=== PATIENT | female | born 1990 | race Caucasian/White ===

== ENCOUNTER → 2016-04-02 | Outpatient (CLI) | payer OTHER ==
[~2016-04-02] MED LIST: BCPILLS PO; IBUP-1449 PO; OXYC-57 PO; RIZA10TA18 PO; TRAM-10 PO
[2016-04-05 00:51] LABS: CHLAMYDIA TRACH RNA*** NOT DETECTED (NOT DETECTED); GC (NEIS GONORRHOEAE)RNA** NOT DETECTED (NOT DETECTED)
== END | disposition home or self-care (01) ==
LOC: C.LAB1850 10:15
PROVIDERS: ATTEND Obstetrics & Gynecology
DX: Z11.3 Encounter for screening for infections with a predominantly sexual mode of transmission (principal)

== ENCOUNTER 2016-06-11 15:00 | Emergency (ER) | payer OTHER ==
[~2016-06-11] VITALS: Ht 170.2 cm; Wt 59.0 kg
[~2016-06-11 15:00] MED LIST changes: -OXYC-57 PO; -TRAM-10 PO
[2016-06-11 15:08] VITALS: TEMP 37.1; Ht 170.2 cm; Wt 59.0 kg
[2016-06-11] MEDS ORDERED: TRAM-10 PO (15:39)
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
[2016-06-11] MEDS ORDERED: DIPHTHERIA/TETANUS/PERTUSSIS 0.5 ML SYR/VIAL IM. ONE (16:15)
[2016-06-11 16:30] VITALS: BP 135/77; PULSE 89; O2SAT 99
[2016-12-15] MEDS ORDERED: OXYC-57 PO (08:09)
== END 2016-06-11 16:31 | disposition admitted as inpatient to this hospital (09) ==
LOC: C.EDB 15:02 → C.EDD 16:31
DX: T23.291A Burn of second degree of multiple sites of right wrist and hand, initial encounter (principal); X11.8XXA Contact with other hot tap-water, initial encounter; F41.9 Anxiety disorder, unspecified; J45.909 Unspecified asthma, uncomplicated; F32.9 Major depressive disorder, single episode, unspecified; G43.909 Migraine, unspecified, not intractable, without status migrainosus; G95.0 Syringomyelia and syringobulbia; Z79.3 Long term (current) use of hormonal contraceptives

== ENCOUNTER → 2016-08-01 | Outpatient (CLI) | payer OTHER ==
[~2016-08-01] MED LIST changes: +OXYC-57 PO; +PRED20TA2 PO; +TRAM-10 PO
[2016-08-04 16:17] LABS: HERPES SIMPLEX AB IGG-1 >58.00 INDEX (< 0.90); HERPES SIMPLEX AB IGG-2 < 0.90 INDEX (< 0.90)
== END | disposition home or self-care (01) ==
LOC: C.LAB1850 10:45
PROVIDERS: ATTEND Obstetrics & Gynecology
DX: Z12.4 Encounter for screening for malignant neoplasm of cervix (principal); Z11.3 Encounter for screening for infections with a predominantly sexual mode of transmission

== ENCOUNTER → 2016-08-01 | Outpatient (CLI) | payer OTHER | LOC: C.PAPS 14:36 | PROVIDERS: ATTEND Obstetrics & Gynecology | DX: Z12.4 Encounter for screening for malignant neoplasm of cervix (principal) ==

== ENCOUNTER → 2016-12-08 | Outpatient (CLI) | payer OTHER ==
[~2016-12-08] MED LIST changes: -PRED20TA2 PO
[2016-12-08 12:51] LABS: BASO % 0.5 %; BASO ABS # 0.04 K/uL (0-0.2); COMPLETE YES; EOS % 2.2 %; HEMATOCRIT 39.1 % (37-47); IG% 0.1 %; LYMPH % 33.2 %; LYMPH ABS # 2.55 K/uL (1.2-3.4); MEAN CELL VOLUME 88.7 fL (80-100); MEAN CORPUSCULAR HEMOGLOBIN 30.4 pg (25-34); MEAN CORPUSCULAR HGB CONC 34.3 g/dl (32-36); MEAN PLATELET VOLUME 10.6 fL (7.4-10.4); MONO % 5.6 %; NEUT % 58.4 %; PLATELET COUNT 165 K/uL (130-400); RED BLOOD COUNT 4.41 M/uL (4.2-5.4); WHITE BLOOD COUNT 7.67 K/uL (4.8-10.8)
== END | disposition home or self-care (01) ==
LOC: C.LAB 12:07
PROVIDERS: ATTEND Obstetrics & Gynecology
DX: Z01.812 Encounter for preprocedural laboratory examination (principal)

== ENCOUNTER → 2016-12-15 | Day surgery (SDC) | payer OTHER ==
[2016-11-18 11:05] VITALS: Ht 170.2 cm; Wt 59.1 kg
[~2016-12-15] VITALS: Ht 170.2 cm; Wt 59.1 kg
[~2016-12-15] MED LIST changes: +ATROPINE SULFATE 0.1 MG/ML 5ML SYR IV PRN; +BUPIVACAINE 0.25% 30 ML VIAL ONE; +DEXAMETHASONE SOD INJ 4 MG/ML VIAL ONE; +EpHEDrine SULFATE INJ 50 MG/ML AMP IV PRN; +EpHEDrine SULFATE INJ 50 MG/ML AMP ONE; +FENTANYL CITRATE INJ 50 MCG/1 ML 2 ML VIAL ONE; +GLYCOPYRROLATE INJ 0.2 MG/ML VIAL ONE; +HYDROmorphone INJ 1 MG/ML SYR IV PRN; +LACTATED RINGER'S 1000ML 1,000 ML IV SCH; +LIDOCAINE HCL 2% 2 ML VIAL (20MG/ML) ONE; +MIDAZOLAM HCL 1 MG/ML 2ML VIAL ONE; +MoRPHine SULFATE 2 MG/ML CARP IV PRN; +MoRPHine SULFATE 4 MG/ML 1 ML CARP\\VIAL IV PRN; +NEOSTIGMINE METHYLSULFATE 5 MG/5 ML SYR ONE; +ONDANSETRON INJ 2 MG/ML 2 ML VIAL IV PRN; +ONDANSETRON INJ 2 MG/ML 2 ML VIAL ONE; +OXYCODONE/ACETAMINOPHEN 5-325 TAB PO PRN; +PHENYLEPHRINE HCL INJ 10 MG/ML VIAL ONE; +PROMETHAZINE HCL INJ 12.5 MG in SODIUM CHLORIDE 0.9% 50ML 50 ML IV PRN; +PROMETHAZINE HCL INJ 25 MG in SODIUM CHLORIDE 0.9% 50ML 50 ML IV PRN; +PROPOFOL IV EMULSION 10 MG/ML 20 ML VIAL IV ONE; +ROCURONIUM BROMIDE 10 MG/ML 5 ML VIAL IV ONE; +SODIUM CHLORIDE 0.9% 1000ML 1,000 ML IV SCH; +SUCCINYLCHOLINE CHLORIDE 20 MG/ML 10 ML VIAL IV ONE
--- NOTE | 2016-12-15 07:01 | History & Physical Bridge - SC ---
H&P Re-Evaluation Bridge Note: I have examined the patient, reviewed the History & Physical and in the interval since the performance of the History & Physical I have noted the following changes of clinical significance: No changes noted
--- NOTE | 2016-12-15 08:08 | [facility] Post Operative Brief Note ---
Immediate Operative Summary Operative Date Dec 15, 2016. Pre-Operative Diagnosis Desires Sterilization Post-Operative Diagnosis same Procedure(s) Performed Laparoscopic Tubal Sterilization Surgeon Dr. Mateusz Roque Product Craftsman Surgeon(s) Sanjiv Cm MD Estimated Blood Loss 5CC Findings Normal appearing uterus, tubes, ovaries. Specimens none Drains shaver, clear yellow Anesthesia general Complication(s) None Disposition Recovery Room / PACU
--- NOTE | 2016-12-15 08:10 | Discharge Instructions-SurgCtr ---
Discharge Instructions Date of Service Dec 15, 2016. Visit Reason for Visit: Encounter For Female Sterilization Discharge Discharge Diagnosis / Problem: s/p laparoscopic tubal sterilization Discharge Goals Goal(s): Therapeutic intervention Activity Recommendations Activity Limitations: per Instructions/Follow-up section Anesthesia . Post Anesthesia Instructions: If you have had General Anesthesia or IV Sedation: * Do not drive today. * Resume driving when surgeon permits. * Do not make important decisions or sign legal documents today. * Call surgeon for: 1. Temperature elevations greater than 101 degrees F. 2. Uncontrollable pain. 3. Excessive bleeding. 4. Persistent nausea and vomiting. 5. Medication intolerance (nausea, vomiting or rash). * For nausea and vomiting use only clear liquids such as: tea, soda, bouillon until nausea subsides, then gradually increase diet as tolerated. * If you have any concerns or questions, call your surgeon's office. If physician is unavailable and it is an emergency, call 911 or go to the nearest emergency room. . Instructions / Follow-Up Instructions / Follow-Up ACTIVITY RECOMMENDATIONS: * Rest the first 2-3 days. You should be back to your normal activity levels by day 3. * No heavy lifting for 2 weeks. * No intercourse, tampons or douching for 1-2 weeks. * You may shower the next day. * Do not drive anytime that you are taking narcotic pain medicines. RETURN TO SCHOOL/WORK: * May return to school or work after 2-3 days. DIET: Nausea may occur in the immediate post-operative period. If so, take clear liquids such as tea, bouillon, apple juice until all nausea has subsided, then resume usual diet. MEDICATIONS: Resume previous medications unless instructed otherwise by your surgeon. Ibuprofen 200mg 2-3 tablets every 4-6 hours as needed -- OR -- Aleve 2 tablets every 8-12 hours as needed for post-operative discomfort Medications are over the counter. Tylenol may be used if above medications are contraindicated or not preferred. Medication should be taken with food or milk. Do not take on an empty stomach. SPECIAL CARE INSTRUCTIONS: * Check temperature twice daily for one week. report any elevation over 101 degrees. * You may experience some vagina spotting and/or bleeding. This is normal for 1 -2 weeks and should not be heavier than a normal period. If it is unusual in amount, call your physician. * Post-operative discomfort may consist of a sore throat, a "bloated" feeling and pain in the shoulders. these are normal symptoms, which usually only last for 2-3 days. * Remove band-aids tomorrow and shower. There is no need to replace band-aids unless there is drainage or discomfort. FOLLOW UP VISIT: Call your doctor's office for a post-operative 2 week visit if not already scheduled. Diet Recommendations Home Diet: resume previous diet Procedures Procedures Performed: Laparoscopic Tubal Sterilization Pending Studies Studies pending at discharge: no Medical Emergencies . Who to Call and When: Medical Emergencies: If at any time you feel your situation is an emergency, please call 911 immediately. . Non-Emergent Contact Non-Emergency issues call your: Primary Care Provider, Automotive Service Professional . . "Provider Documentation" section prepared by Ade Roque. .
[2016-12-15] MEDS: FENTANYL CITRATE INJ 50 MCG/1 ML 2 ML VIAL IV PRN ×2 (08:36→08:42)
[2016-12-15 08:52] VITALS: TEMP 36.9
--- NOTE | 2016-12-15 09:38 | OPERATIVE REPORT ---
DATE OF OPERATION: 12/15/2016 PREOPERATIVE DIAGNOSIS: Desires sterilization. POSTOPERATIVE DIAGNOSIS: Same. PROCEDURE PERFORMED: Laparoscopic tubal sterilization. SURGEON: Ade Roque DO. CRUISE GUIDE: Dr. Cm. ESTIMATED BLOOD LOSS: 5 mL FINDINGS: Normal appearing uterus, tubes and ovaries. SPECIMENS: None. DRAINS: Aldana, clear yellow. ANESTHESIA: General. COMPLICATIONS: None. DISPOSITION: Stable and good to recovery room. INDICATIONS FOR PROCEDURE: The patient is a 26-year-old G0 who originally presented to my office requesting tubal sterilization. We had a thorough discussion about this and I presented to her with all options, especially long-acting but reversible contraceptives. The patient was confident and insistent that she wanted to undergo surgical sterilization. I then brought her back to the office for another discussion about this to give her time to think and she again requests sterilization and brought with her a handwritten letter outlining her decision. She was counseled on the risk of failure of 2-05/999 and she elected to proceed with surgery. Informed consent was obtained in the office. DESCRIPTION OF PROCEDURE: The patient was taken to the operating room where general anesthesia was administered. She was prepared and draped in the usual sterile fashion with feet in [facility] stirrups. A Aldana catheter was placed. A weighted speculum was placed in the vagina, the cervix was visualized and its anterior lip was grasped with a single tooth tenaculum. Felsenthal uterine manipulator was placed and gloves were changed and attention was then turned to the abdomen. An infraumbilical skin incision was made and this was carried through using the open Jesus technique through the fascia and into the peritoneum. The infraumbilical trocar was placed and camera was inserted to ensure placement into the peritoneal space. CO2 gas was used to insufflate the abdomen to a pressure of 15 mmHg. The pelvis was viewed with the above-noted findings. The suprapubic port was then placed under direct visualization. Using the Filshie clip applicator, the right followed by the left tube were identified and followed out to the fimbria and clipped. Excellent hemostasis was observed and all ports were removed under direct visualization and the gas was desufflated from the abdomen. Fascia was reapproximated with 0 Vicryl and the skin was reapproximated with 4-0 Vicryl in a running subcuticular stitch. Marcaine 0.25% was injected at both sites. The patient tolerated the procedure well. She was taken to the recovery room in stable and good condition. I attest to the content of the Intraoperative Record and any orders documented therein. Any exception s are noted below.
[2016-12-15 09:53] VITALS: BP 94/55; PULSE 58; O2SAT 100
--- NOTE | 2016-12-15 10:00 | Anesthesia Progress Nt - [facility] ---
Anesthesia Post Op Note Date & Time Dec 15, 2016 at 09:59 Vital Signs Pain Intensity: 6 Vital Signs Past 12 Hours Date Time Temp Pulse Resp B/P (MAP) Pulse Ox O2 Delivery O2 Flow Rate FiO2 12/15/16 09:53 58 20 94/55 (68) 100 Room Air 12/15/16 09:05 54 20 89/53 (65) 100 Room Air 12/15/16 08:56 103/58 12/15/16 08:52 54 12 12/15/16 08:52 36.9 54 16 104/68 97 Room Air 12/15/16 08:52 54 12 98 12/15/16 08:50 104/68 12/15/16 08:47 56 15 100 12/15/16 08:47 56 15 12/15/16 08:46 48 17 100 12/15/16 08:46 48 17 12/15/16 08:45 106/60 12/15/16 08:41 46 15 12/15/16 08:41 47 15 100 12/15/16 08:40 99/69 12/15/16 08:36 53 12 12/15/16 08:36 53 12 100 12/15/16 08:35 96/61 12/15/16 08:33 42 17 100 12/15/16 08:33 42 17 12/15/16 08:31 101/56 12/15/16 08:28 56 17 12/15/16 08:28 57 17 12/15/16 08:25 99/65 12/15/16 08:24 98/65 12/15/16 08:23 51 14 12/15/16 08:23 52 14 100 12/15/16 08:18 60 10 12/15/16 08:18 10 12/15/16 08:15 103/66 12/15/16 08:13 65 9 103/70 100 12/15/16 08:13 36.4 67 12 103/70 100 Diffusion Mask 6 12/15/16 08:13 67 9 12/15/16 06:32 37.1 85 22 121/83 (96) 100 Room Air Notes Mental Status: alert / awake / arousable, participated in evaluation Pt Amnestic to Procedure: Yes Nausea / Vomiting: adequately controlled Pain: adequately controlled Airway Patency, RR, SpO2: stable & adequate BP & HR: stable & adequate Hydration State: stable & adequate Anesthetic Complications: no major complications apparent Doing well. Awake, n/v controlled. Ready for d/c
== END | disposition home or self-care (01) ==
LOC: X.SURG 06:16
PROVIDERS: ATTEND Obstetrics & Gynecology
DX: Z30.2 Encounter for sterilization (principal); J45.909 Unspecified asthma, uncomplicated; M19.90 Unspecified osteoarthritis, unspecified site; Z82.5 Family history of asthma and other chronic lower respiratory diseases; Z82.49 Family history of ischemic heart disease and other diseases of the circulatory system; Z68.20 Body mass index [BMI] 20.0-20.9, adult; Z98.890 Other specified postprocedural states

== ENCOUNTER 2017-02-18 11:15 | Emergency (ER) | payer OTHER ==
[~2017-02-18] VITALS: Ht 167.6 cm; Wt 58.5 kg
[~2017-02-18 11:15] MED LIST changes: -ATROPINE SULFATE 0.1 MG/ML 5ML SYR IV PRN; -BCPILLS PO; -BUPIVACAINE 0.25% 30 ML VIAL ONE; -DEXAMETHASONE SOD INJ 4 MG/ML VIAL ONE; -EpHEDrine SULFATE INJ 50 MG/ML AMP IV PRN; -EpHEDrine SULFATE INJ 50 MG/ML AMP ONE; -FENTANYL CITRATE INJ 50 MCG/1 ML 2 ML VIAL ONE; -GLYCOPYRROLATE INJ 0.2 MG/ML VIAL ONE; -HYDROmorphone INJ 1 MG/ML SYR IV PRN; -LACTATED RINGER'S 1000ML 1,000 ML IV SCH; -LIDOCAINE HCL 2% 2 ML VIAL (20MG/ML) ONE; -MIDAZOLAM HCL 1 MG/ML 2ML VIAL ONE; -MoRPHine SULFATE 2 MG/ML CARP IV PRN; -MoRPHine SULFATE 4 MG/ML 1 ML CARP\\VIAL IV PRN; -NEOSTIGMINE METHYLSULFATE 5 MG/5 ML SYR ONE; -ONDANSETRON INJ 2 MG/ML 2 ML VIAL IV PRN; -ONDANSETRON INJ 2 MG/ML 2 ML VIAL ONE; -OXYC-57 PO; -OXYCODONE/ACETAMINOPHEN 5-325 TAB PO PRN; -PHENYLEPHRINE HCL INJ 10 MG/ML VIAL ONE; -PROMETHAZINE HCL INJ 12.5 MG in SODIUM CHLORIDE 0.9% 50ML 50 ML IV PRN; -PROMETHAZINE HCL INJ 25 MG in SODIUM CHLORIDE 0.9% 50ML 50 ML IV PRN; -PROPOFOL IV EMULSION 10 MG/ML 20 ML VIAL IV ONE; -ROCURONIUM BROMIDE 10 MG/ML 5 ML VIAL IV ONE; -SODIUM CHLORIDE 0.9% 1000ML 1,000 ML IV SCH; -SUCCINYLCHOLINE CHLORIDE 20 MG/ML 10 ML VIAL IV ONE
[2017-02-18 11:22] VITALS: TEMP 37.3; Ht 167.6 cm; Wt 58.5 kg
[2017-02-18] MEDS ORDERED: SODIUM CHLORIDE 0.9% 1000ML 1,000 ML IV ONE (11:45)
[2017-02-18] MEDS ORDERED: DEXAMETHASONE INJ 10 MG in SYRINGE 0 ML IV ONE ×2 (11:45→12:30)
[2017-02-18] MEDS ORDERED: OPTIRAY 320 IV PRN (12:00)
[2017-02-18 12:10] LABS: BASO % 0.6 %; BASO ABS # 0.05 K/uL (0-0.2); COMPLETE YES; EOS % 5.9 %; HEMATOCRIT 40.4 % (37-47); IG% 0.1 %; LYMPH % 27.4 %; MEAN CELL VOLUME 89.2 fL (80-100); MEAN CORPUSCULAR HEMOGLOBIN 30.9 pg (25-34); MEAN CORPUSCULAR HGB CONC 34.7 g/dl (32-36); MONO % 5.9 %; NEUT % 60.1 %; PLATELET COUNT 148 K/uL (130-400); RED BLOOD COUNT 4.53 M/uL (4.2-5.4); WHITE BLOOD COUNT 8.03 K/uL (4.8-10.8)
[2017-02-18 12:19] LABS: URINE APPEARANCE CLEAR (CLEAR); URINE BILIRUBIN NEG (NEG); URINE COLOR YELLOW; URINE NITRITE NEG (NEG); URINE SPECIFIC GRAVITY 1.013 (1.000-1.030); UROBILINOGEN NEG (NEG)
[2017-02-18 12:20] LABS: MANUAL MICROSCOPIC REQUIRED? NO; REVIEW REQ? NO
[2017-02-18 12:29] LABS: BUN/CREATININE RATIO 12.5 (10-20); CALCIUM 9.1 mg/dl (8.5-10.1); CREATININE 0.85 mg/dl (0.60-1.20); POTASSIUM 3.8 mmol/L (3.5-5.1)
[2017-02-18 12:39] LABS: THYROID STIMULATING HORMONE 1.25 uIu/ml (0.300-4.500)
--- NOTE | 2017-02-18 13:21 | DIAGNOSTIC IMAGING REPORT ---
SOFT TISSUE NECK WITH HISTORY: 26 years-old Female sensations of thoart swelling acute sore throat with tachycardia. COMPARISON: MR cervical spine 08/10/2013 TECHNIQUE: Multiple axial CT images of the cervical spine were obtained following the intravenous administration of 93 mL Optiray 320. A dose lowering technique was used consistent with the principals of ARABELLA. FINDINGS: The nasopharynx, oral pharynx and hypopharynx are patent. Evaluation of the oral cavity is limited secondary to dental amalgam streak artifact. Union and adenoid tonsils are within normal limits. No peritonsillar abscess. There is mild prominence of the lingual tonsils. Trace debris within the vallecula. Piriform sinuses appear unremarkable. The glottis and subglottic airway appear patent. Thyroid is homogeneous. The parotid and sublingual glands appear normal. There is no pathologic adenopathy of the neck identified. No focal soft tissue abnormality or abnormal enhancement identified. The intracranial structures appear unremarkable. Carotid vasculature is within normal limits. Mild residual thymic tissue. Lung apices are clear. Bones appear intact without significant degenerative changes. Mastoid air cells are clear. Minimal mucosal thickening of the maxillary sinuses. Periapical cysts are noted involving the right maxillary second molar as seen on image 137 series 3. IMPRESSION: 1. No acute abnormality identified involving the soft tissues of the neck. No prevertebral soft tissue swelling, peritonsillar abscess or adenopathy. 2. Mild maxillary sinus disease. 3. Periapical cysts involve the right maxillary second molar. The above report was generated using voice recognition software. It may contain grammatical, syntax or spelling errors. Electronically signed by: Andrew Vang M.D. 02/18/2017 1:20 PM Dictated Date/Time: 02/18/2017 1:12 PM
[2017-02-18] MEDS ORDERED: PRED20TA2 PO (14:25)
[2017-02-18 14:40] VITALS: BP 111/66; PULSE 84; O2SAT 98
--- NOTE | 2017-02-18 20:21 | EMERGENCY ROOM VISIT NOTE ---
ED Visit Note First contact with patient: 11:25 Chief Complaint: Allergic reaction. History of Present Illness: Ms. Orellana is a 26-year-old white female who ambulates into the ED complaining of a possible allergic reaction. Patient reports for the last 3 weeks she has been having sensations of throat swelling. In the last week she reports she has been developing an itchy throat and a cough. The cough is been mildly productive of clear sputum. Over the last few days she reports she has developed a whispered voice. She has not identified any aggravating or alleviating factors related to her symptoms. She did report she using her albuterol inhaler and took Benadryl last night; when questioned patient reports she is allergic to Benadryl with a paradoxical reaction including tachycardia, with no relief of her symptoms. She denies any associated fevers, chills, sweats, skin eruptions, skin color changes, itchy skin, any new possible allergies including medications and personal hygiene products, upper respiratory tract symptoms including sinus congestion, nasal drainage, ear pain, sore throat, painful talking, drooling, neck pain/stiffness , chest pain, palpitations, previous clots, claudication, abdominal pain, nausea , vomiting. Review of Systems: As noted above in history of present illness. All body systems were reviewed and found to be negative as noted above. Past Medical History: As previously noted and status post wisdom teeth extraction, lumpectomy and tubal ligation. Current Medications: Maxalt. Allergies to Medications: Benadryl. Social History: Patient is currently employed; she feels safe in her home environment; she denies tobacco use and admits to alcohol use. Physical Examination: Vital Signs: Date Time Temp Pulse Resp B/P (MAP) Pulse Ox O2 Delivery O2 Flow Rate FiO2 02/18/17 14:40 84 20 111/66 98 Room Air 02/18/17 14:24 83 15 108/63 97 Room Air 02/18/17 12:51 92 18 120/71 100 Room Air 02/18/17 12:00 95 Room Air 02/18/17 11:22 37.3 136 24 151/87 100 Room Air GENERAL: 26-year-old female in mild distress due to pain, nontoxic-appearing, afebrile and hemodynamically stable. NEUROLOGICAL: Awake, alert and oriented to person, place and time. Answering questions appropriately and following commands. Normal gait. Good hand eye coordination. No focal motor or sensory deficits. SKIN: Warm, dry and pink. No soft tissue eruptions or trauma noted. HEENT: Atraumatic and normocephalic. No erythema or tenderness over the frontal or maxillary sinuses. PERRLA. Sclera white and conjunctiva pink. No drainage from naris or nasal congestion. Oral cavity moist and pink. Airway is patent. Uvula was midline and no abscesses were seen. Pharynx is nonerythematous or edematous. No tonsillar hypertrophy or exudates. Speech whispered but clear. No lymphadenopathy. No laryngeal tenderness. Trachea midline. No jugular venous distention. There is a mild fullness in the area of the thyroid. No auditory or auscultatory stridor. BACK: No tenderness over the bony spine. No CVA tenderness. THORAX: Lungs sounds are clear to auscultation and equal bilaterally with symmetrical chest wall. No wheezing, rales or rhonchi. No crepitus, tenderness , subcutaneous air or deformities noted. HEART: Tachycardic rate and rhythm. No gallops, rubs or murmurs are appreciated. ABDOMEN: Flat, soft and nontender. Positive bowel sounds in all quadrants. No guarding, rigidity or organomegaly. EXTREMITIES: Moves all extremities well on command and with purpose. All distal neurovascular statuses are intact and equal bilaterally. No calf tenderness or cords. ED Course: Patient is assessed as noted above. Patient's medication list was reviewed. Laboratory Testing: Test 02/18/17 11:59 02/18/17 12:01 Range/Units White Blood Count 8.03 4.8-10.8 K/uL Red Blood Count 4.53 4.2-5.4 M/uL Hemoglobin 14.0 12.0-16.0 g/dL Hematocrit 40.4 37-47 % Mean Corpuscular Volume 89.2 80-100 fL Mean Corpuscular Hemoglobin 30.9 25-34 pg Mean Corpuscular Hemoglobin Concent 34.7 32-36 g/dl Platelet Count 148 130-400 K/uL Mean Platelet Volume 11.0 7.4-10.4 fL Neutrophils (%) (Auto) 60.1 % Lymphocytes (%) (Auto) 27.4 % Monocytes (%) (Auto) 5.9 % Eosinophils (%) (Auto) 5.9 % Basophils (%) (Auto) 0.6 % Neutrophils # (Auto) 4.83 1.4-6.5 K/uL Lymphocytes # (Auto) 2.20 1.2-3.4 K/uL Monocytes # (Auto) 0.47 0.11-0.59 K/uL Eosinophils # (Auto) 0.47 0-0.5 K/uL Basophils # (Auto) 0.05 0-0.2 K/uL RDW Standard Deviation 39.6 36.4-46.3 fL RDW Coefficient of Variation 12.3 11.5-14.5 % Immature Granulocyte % (Auto) 0.1 % Immature Granulocyte # (Auto) 0.01 0.00-0.02 K/uL Sodium Level 139 136-145 mmol/L Potassium Level 3.8 3.5-5.1 mmol/L Chloride Level 107 98-107 mmol/L Carbon Dioxide Level 27 21-32 mmol/L Anion Gap 5.0 3-11 mmol/L Blood Urea Nitrogen 11 7-18 mg/dl Creatinine 0.85 0.60-1.20 mg/dl Est Creatinine Clear Calc Drug Dose 91.0 ml/min Estimated GFR () 108.1 Estimated GFR (Non- 93.2 BUN/Creatinine Ratio 12.5 10-20 Random Glucose 87 70-99 mg/dl Calcium Level 9.1 8.5-10.1 mg/dl Thyroid Stimulating Hormone (TSH) 1.250 0.300-4.500 uIu/ml Urine Color YELLOW Urine Appearance CLEAR CLEAR Urine pH 7.0 4.5-7.5 Urine Specific [place] 1.013 1.000-1.030 Urine Protein NEG NEG Urine Glucose (UA) NEG NEG Urine Ketones NEG NEG Urine Occult Blood NEG NEG Urine Nitrite NEG NEG Urine Bilirubin NEG NEG Urine Urobilinogen NEG NEG Urine Leukocyte Esterase NEG NEG Soft Tissue Neck CT: Was reviewed by myself and read by the radiologist showing no acute abnormalities, no prevertebral soft tissue swelling, peritonsillar abscess or adenopathy, mild maxillary sinus disease and early apical cyst of the right maxillary second molar. Patient was hydrated with normal saline and received 10 mg of Decadron IV. Patient was reassessed multiple times during her stay in the emergency department. Patient's case was reviewed with Dr. Rico; we agreed on diagnostic approach, treatment, disposition and plan. Patient was educated about today's findings and instructed on her treatment plan ; she verbalizes understanding and agreement with this plan. Clinical Impression: Laryngitis. Throat swelling sensations. Decision-Making: Initially my differential diagnosis I considered tonsillitis, pharyngitis, thyroid disease, soft tissue neck abscess and other causes. Patient's blood pressure: Elevated. Blood pressure disposition: Situational. Disposition: Patient discharged home in stable condition accompanied by male friend; prior to departure she was reassessed and subjectively reported she was symptom and discomfort free. Plan: Patient was prescribed 60 mg of prednisone once a day for 5 days. Patient was encouraged to use her albuterol as needed. Patient is encouraged to stay well-hydrated with increased clear fluids. Patient was encouraged to follow-up with family physician for recheck. Patient was encouraged return ED for return of worsening/uncontrolled cough, wheezing, fevers, return of sensations of throat swelling, inability to swallow , vomiting or any new/concerning symptoms
== END 2017-02-18 14:47 | disposition home or self-care (01) ==
LOC: C.EDB 11:17
DX: J04.0 Acute laryngitis (principal); R22.0 Localized swelling, mass and lump, head

== ENCOUNTER → 2017-06-05 | Outpatient (CLI) | payer OTHER ==
[~2017-06-05] MED LIST changes: -IBUP-1449 PO; -TRAM-10 PO
[2017-06-05 12:22] LABS: BASO % 0.4 %; BASO ABS # 0.03 K/uL (0-0.2); HEMATOCRIT 42.1 % (37-47); HEMOGLOBIN 14.7 g/dL (12.0-16.0); IG# 0.01 K/uL (0.00-0.02); LYMPH % 30.4 %; LYMPH ABS # 2.04 K/uL (1.2-3.4); MEAN CELL VOLUME 91.1 fL (80-100); MEAN CORPUSCULAR HEMOGLOBIN 31.8 pg (25-34); MEAN CORPUSCULAR HGB CONC 34.9 g/dl (32-36); MEAN PLATELET VOLUME 10.6 fL (7.4-10.4); MONO % 5.8 %; MONO ABS # 0.39 K/uL (0.11-0.59); NEUT % 60.3 %; NEUT ABS # 4.03 K/uL (1.4-6.5); PLATELET COUNT 227 K/uL (130-400); RED CELL DISTRIBUTION WIDTH CV 12.6 % (11.5-14.5); RED CELL DISTRIBUTION WIDTH SD 41.5 fL (36.4-46.3)
[2017-06-05 13:19] LABS: HEP C IGG 13 YRS+OLDER_RFLX NEG (NEG)
[2017-06-08 10:40] LABS: HERPES SIMPLEX AB IGG-1 >58.00 INDEX (< 0.90); HERPES SIMPLEX AB IGG-2 < 0.90 INDEX (< 0.90)
== END | disposition home or self-care (01) ==
LOC: C.LAB1850 10:49
PROVIDERS: ATTEND Physician Assistant
DX: Z01.818 Encounter for other preprocedural examination (principal); Z11.3 Encounter for screening for infections with a predominantly sexual mode of transmission; N89.8 Other specified noninflammatory disorders of vagina

== ENCOUNTER → 2017-10-30 | Day surgery (SDC) | payer OTHER ==
[~2017-10-30] VITALS: Ht 170.2 cm; Wt 59.1 kg
[~2017-10-30] MED LIST changes: +LIDOCAINE HCL 2% 2 ML VIAL (20MG/ML) ONE; +MIDAZOLAM HCL 1 MG/ML 2ML VIAL ONE; +PROPOFOL IV EMULSION 10 MG/ML 20 ML VIAL ONE; +SODIUM CHLORIDE 0.9% 500ML 500 ML IV ONE; +TRAM-10 PO; +VNTHFA/IN INH
[2017-10-30 07:49] VITALS: Ht 170.2 cm; Wt 59.1 kg
--- NOTE | 2017-10-30 08:32 | Endo History and Physical ---
History & Physical Date of Service: Oct 30, 2017. Chief Complaint: early satity diarrhea since April Referring Physician: dr. alexandra wallace History of Present Illness 27 yo CF who presents for EGD and colonoscopy secondary to early satiety and diarrhea. Past Medical History Arthritis, Asthma, Gastrointestinal Disorder, Anxiety, Depression Past Surgical History Hx Cardiac Surgery: No Hx Internal Defibrillator: No Hx Pacemaker: No Hx Abdominal Surgery: Yes (TUBAL LIGATION) Hx of Implantable Prosthesis: No Hx Post-Op Nausea and Vomiting: No Hx Cancer Surgery: No Hx Thoracic Surgery: No Hx Orthopedic: No Hx Urinary Tract Surgery: No Family History None Social History Smoking Status: Never Smoker Hx Substance Use: No Hx Alcohol Use: Yes (2-3 DRINKS WEEKLY ON AVERAGE) Allergies Coded Allergies: Diphenhydramine (Verified Allergy, Intermediate, INCREASED HEART RATE, ) Current Medications Reported Home Medications Medications Dose Route/Sig Max Daily Dose Days Date Category Dose Instructions Ventolin Hfa (Albuterol) 200 Puffs/91156 Mcg Aers 2-4 Puffs INH Q6H PRN 10/22/17 Reported Ultram (Tramadol HCl) 50 Mg Tab 50 Mg PO DAILY PRN 10/22/17 Reported Maxalt (Rizatriptan Benzoate) 10 Mg Tab 10 Mg PO UD PRN 03/19/13 Reported TAKE ONE TABLET AT ONSET OF MIGRAINE, MAY REPEAT AFTER 2 HOURS IF NEEDED. TAKE ONLY UP TO 3 TIMES PER WEEK MAXIMUM. Vital Signs Weight (Kilograms): 59.09 Height (Feet): 5 Height (Inches): 7 Date Time Temp Pulse Resp B/P (MAP) Pulse Ox O2 Delivery O2 Flow Rate FiO2 10/30/17 08:00 36.6 74 18 107/78 (88) 97 Room Air Physical Exam General Appearance: WD/WN, no apparent distress Respiratory/Chest: Auscultation: breath sounds normal Cardiovascular: Heart Auscultation: RRR Abdomen: Bowel Sounds: normal Inspection & Palpation: soft, non-distended, no tenderness, guarding & rebound Assessment and Plan Assessment: 27 yo CF who presents for EGD and colonoscopy secondary to early satiety and diarrhea. Plan: Proceed with EGD and colonoscopy.
--- NOTE | 2017-10-30 09:06 | GI REPORT ---
Patient Name: Catie Orellana Procedure Date: 10/30/2017 8:33 AM Date of : 1990 Admit Type: Outpatient Age: 27 Gender: Female Attending MD: Mando Li DO Procedure: Colonoscopy Providers: Mando Li DO Referring MD: Ran Santos DO Indications: Chronic diarrhea Medicines: Monitored Anesthesia Care Complications: No immediate complications. Estimated Blood Loss: Estimated blood loss: none. Procedure: Pre-Anesthesia Assessment: - Prior to the procedure, a History and Physical was performed, and patient medications and allergies were reviewed. The patient's tolerance of previous anesthesia was also reviewed. The risks and benefits of the procedure and the sedation options and risks were discussed with the patient. All questions were answered, and informed consent was obtained. Prior Anticoagulants: The patient has taken no previous anticoagulant or antiplatelet agents. ASA Grade Assessment: II - A patient with mild systemic disease. After reviewing the risks and benefits, the patient was deemed in satisfactory condition to undergo the procedure. After I obtained informed consent, the scope was passed under direct vision. Throughout the procedure, the patient's blood pressure, pulse, and oxygen saturations were monitored continuously. The scope was introduced through the anus and advanced to the terminal ileum. The colonoscopy was performed without difficulty. The patient tolerated the procedure well. The quality of the bowel preparation was good. The terminal ileum, ileocecal valve, appendiceal orifice, and rectum were photographed. Findings: The perianal and digital rectal examinations were normal. Non-bleeding internal hemorrhoids were found during retroflexion. The hemorrhoids were small. Several random biopsies were obtained with cold forceps for histology in the entire colon. Fluid aspiration for stool studies was performed in the entire colon. Impression: - Non-bleeding internal hemorrhoids. - Several random biopsies were obtained in the entire colon. - Fluid aspiration was performed. Recommendation: - Resume previous diet. - Continue present medications. - Repeat colonoscopy for surveillance based on pathology results. - Return to primary care physician as previously scheduled. Mando Li DO 10/30/2017 9:05:57 AM This report has been signed electronically. Note Initiated On: 10/30/2017 8:33 AM Number of Addenda: 0 I attest to the content of the Intraoperative Record and orders documented therein, exceptions below {[id number]}
--- NOTE | 2017-10-30 09:07 | GI REPORT ---
Patient Name: Catie Orellana Procedure Date: 10/30/2017 8:34 AM Date of : 1990 Admit Type: Outpatient Age: 27 Gender: Female Attending MD: Mando Li DO Procedure: Upper GI endoscopy Providers: Mando Li DO Referring MD: Ran Santos DO Indications: Early satiety Medicines: Monitored Anesthesia Care Complications: No immediate complications. Estimated Blood Loss: Estimated blood loss: none. Procedure: Pre-Anesthesia Assessment: - Prior to the procedure, a History and Physical was performed, and patient medications and allergies were reviewed. The patient's tolerance of previous anesthesia was also reviewed. The risks and benefits of the procedure and the sedation options and risks were discussed with the patient. All questions were answered, and informed consent was obtained. Prior Anticoagulants: The patient has taken no previous anticoagulant or antiplatelet agents. ASA Grade Assessment: II - A patient with mild systemic disease. After reviewing the risks and benefits, the patient was deemed in satisfactory condition to undergo the procedure. After obtaining informed consent, the endoscope was passed under direct vision. Throughout the procedure, the patient's blood pressure, pulse, and oxygen saturations were monitored continuously. The scope was introduced through the mouth, and advanced to the second part of duodenum. The upper GI endoscopy was accomplished without difficulty. The patient tolerated the procedure well. Findings: The esophagus was normal. Localized mild inflammation characterized by erythema was found in the gastric antrum. Biopsies were taken with a cold forceps for histology. The examined duodenum was normal. Impression: - Normal esophagus. - Gastritis. Biopsied. - Normal examined duodenum. Recommendation: - Resume previous diet. - Continue present medications. - Await pathology results. - Return to primary care physician as previously scheduled. Mando Li DO 10/30/2017 9:07:30 AM This report has been signed electronically. Note Initiated On: 10/30/2017 8:34 AM Number of Addenda: 0 I attest to the content of the Intraoperative Record and orders documented therein, exceptions below {[id number]}
--- NOTE | 2017-10-30 09:15 | Discharge Instructions ---
Endoscopy Patient Instructions Date / Procedure(s) Performed Oct 30, 2017. Colonoscopy, EGD Allergy Information Coded Allergies: Diphenhydramine (Verified Allergy, Intermediate, INCREASED HEART RATE, ) Discharge Date / Findings Oct 30, 2017. EGD: Gastritis s/p biopsies Colonoscopy: Random colon biopsies, Stool studies, Internal hemorrhoids Medication Instructions OK to resume all medications today as prescribed Reported Home Medications Medications Dose Route/Sig Max Daily Dose Days Date Category Dose Instructions Ventolin Hfa (Albuterol) 200 Puffs/93401 Mcg Aers 2-4 Puffs INH Q6H PRN 10/22/17 Reported Ultram (Tramadol HCl) 50 Mg Tab 50 Mg PO DAILY PRN 10/22/17 Reported Maxalt (Rizatriptan Benzoate) 10 Mg Tab 10 Mg PO UD PRN 03/19/13 Reported TAKE ONE TABLET AT ONSET OF MIGRAINE, MAY REPEAT AFTER 2 HOURS IF NEEDED. TAKE ONLY UP TO 3 TIMES PER WEEK MAXIMUM. Provider Instructions Activity Restrictions - No exercising or heavy lifting for 24 hours. - Do not drink alcohol the day of the procedure. - Do not drive a car or operate machinery until the day after the procedure. - Do not make any important decisions or sign important papers in 24 hours after the procedure. Following Day: - Return to full activity which may include returning to work/school. Diet Start your diet with liquids and light foods (jello, soup, juice, toast). Then eat your usual diet if not nauseated. Treatment For Common After Affects For mild abdominal pain, bloating, or excessive gas: - Rest - Eat lightly - Lie on right side Follow-Up Information Follow-up with dr. alexandra wallace as scheduled Anesthesia Information What You Should Know You have had a procedure that required some medicine to reduce anxiety and discomfort. This treatment is called moderate sedation. After receiving the treatment, you may be sleepy, but you will be able to breathe on your own. The effects of the treatment may last for several hours. Follow these instructions along with Activity/Diet recommendations noted above: * Do NOT do anything where dizziness or clumsiness would be dangerous. * Rest quietly at home today, then you can be up and about tomorrow. * Have a responsible person stay with you the rest of today. * You may have had an I.V. today. If so, you may take the dressing off later today. Recommendations Call your doctor if: * Trouble breathing * Continuous vomiting for more than 24 hours * Temperature above 101 degrees * Severe abdominal pain or bloating * Pain not relieved by pain medicine ordered * There is increased drainage or redness from any incision * A large amount of rectal bleeding greater than 2-3 tablespoons. (If you had a polyp/s removed or have hemorrhoids, a small amount of blood - from the rectum is to be expected.) * You have any unanswered questions or concerns. IN THE EVENT OF A SERIOUS EMERGENCY, GO TO THE NEAREST EMERGENCY ROOM Your discharge instructions were prepared by provider Mando Li. Patient Instructions Signature Page Catie Orellana Patient (or Guardian) Signature/Date: I have read and understand the instructions given to me by my caregivers. Caregiver/RN/Doctor Signature/Date: The above-named patient and/or guardian has received patient instructions on this date. + Original Patient Signature Page (only) stays with chart. Please make copy for patient.
--- NOTE | 2017-10-30 09:33 | Anesthesiology Progress Note ---
Anesthesia Post Op Note Date & Time Oct 30, 2017 at 09:33 Vital Signs Pain Intensity: 0 Vital Signs Past 12 Hours Date Time Temp Pulse Resp B/P (MAP) Pulse Ox O2 Delivery O2 Flow Rate FiO2 10/30/17 09:23 65 18 109/73 (85) 99 Room Air 10/30/17 09:08 74 14 114/65 (81) 100 Room Air 10/30/17 08:00 36.6 74 18 107/78 (88) 97 Room Air Notes Mental Status: alert / awake / arousable, participated in evaluation Pt Amnestic to Procedure: Yes Nausea / Vomiting: adequately controlled Pain: adequately controlled Airway Patency, RR, SpO2: stable & adequate BP & HR: stable & adequate Hydration State: stable & adequate Anesthetic Complications: no major complications apparent
[2017-10-30 09:38] VITALS: BP 122/84; PULSE 66; O2SAT 99
== END | disposition home or self-care (01) ==
LOC: C.GI 07:15
PROVIDERS: ATTEND Internal Medicine
DX: R19.7 Diarrhea, unspecified (principal); K64.8 Other hemorrhoids; K29.50 Unspecified chronic gastritis without bleeding; R68.81 Early satiety; J45.909 Unspecified asthma, uncomplicated; F32.9 Major depressive disorder, single episode, unspecified; M19.90 Unspecified osteoarthritis, unspecified site; Z88.8 Allergy status to other drugs, medicaments and biological substances

== ENCOUNTER 2019-05-04 12:44 | Inpatient (IN) ==
[2019-05-04] MEDS ORDERED: SODIUM CHLORIDE 0.9% 1000ML 1,000 ML IV ONE (12:59)
[2019-05-04] MEDS ORDERED: SODIUM CHLORIDE 0.9% 1000ML 2,000 ML IV SCH (13:00)
--- NOTE | 2019-05-04 13:19 | XRay Report ---
XR chest 1V portable HISTORY: Dyspnea COMPARISON: None. FINDINGS: The lungs are clear. Cardiac silhouette is normal in size. No pleural effusions. No pneumot horax. IMPRESSION: No acute process. ACT 112: Negative or not required by law. Electronically signed by: Kelton Mcgregor M.D. 05/04/2019 1:18 PM
[2019-05-04 13:39] LABS: Basophils # (auto) 0.03 K/uL (0-0.2); Basophils % (auto) 0.2 %; Eosinophils # (auto) 0.03 K/uL (0-0.5); Eosinophils % (auto) 0.2 %; Hematocrit (blood only) 40.4 % (37-47); Hemoglobin 14.1 g/dL (12.0-16.0); Immature Granulocytes # (auto) 0.06 K/uL (0.00-0.02); Immature Granulocytes % (auto) 0.3 %; Lymphocytes # (auto) 0.57 K/uL (1.2-3.4); Lymphocytes % (auto) 2.9 %; Mean Corpuscular Hemoglobin 31.5 pg (25-34); Mean Corpuscular Hgb Conc 34.9 g/dL (32-36); Mean Corpuscular Volume 90.4 fL (80-100); Mean Platelet Volume 10.5 fL (7.4-10.4); Monocytes % (auto) 5.6 %; Neutrophils # (auto) 17.81 K/uL (1.4-6.5); Neutrophils % (auto) 90.8 %; Platelet Count 150 K/uL (130-400); RDW Coefficient of Variation 11.9 % (11.5-14.5); RDW Standard Deviation 39.2 fL (36.4-46.3); Red Blood Count 4.47 M/uL (4.2-5.4)
[2019-05-04 13:43] LABS: Pregnancy Test, Serum Negative (Negative)
[2019-05-04 13:46] LABS: Alanine Aminotransferase 24 U/L (12-78); Albumin Level 3.8 gm/dl (3.4-5.0); Aspartate Aminotransferase 16 U/L (15-37); BUN Creatinine Ratio 12.6 (10-20); Blood Urea Nitrogen 10 mg/dl (7-18); Calcium 8.6 mg/dl (8.5-10.1); Carbon Dioxide 25 mmol/L (21-32); Chloride 107 mmol/L (98-107); Creatinine Clr Calc Pharmacy 97.7 ml/min; Est GFR (African American) 117.4; Est GFR (Non-African American) 101.3; Glucose 98 mg/dl (70-99); Potassium 3.3 mmol/L (3.5-5.1); Sodium 137 mmol/L (136-145)
[2019-05-04 13:49] LABS: INR 1.1 (0.9-1.1); Partial Thromboplastin Time 26.6 Seconds (21.0-31.0); Prothrombin Time 10.8 Seconds (9.0-12.0)
[2019-05-04 13:51] LABS: Alkaline Phosphatase 48 U/L (45-117); Bilirubin,Total 0.9 mg/dl (0.2-1); Globulin 3.7 gm/dl (2.5-4.0); Total Protein 7.5 gm/dl (6.4-8.2); Troponin I < 0.015 ng/ml (0-0.045)
[2019-05-04 13:54] LABS: Appearance Urine Clear (Clear); Bacteria Urine Automated Negative (Negative); Bilirubin Urine Negative (Negative); Blood Urine Trace (Negative); Cast Urine Automated 0 /lpf (0-5); Color Urine Yellow; Epithelial Cell Urine Auto 0-5 /lpf (0-5); Glucose Urine UA Negative (Negative); Ketones Urine Negative (Negative); Leukocyte Esterase Urine Negative (Negative); Nitrite Urine Negative (Negative); Protein Urine Negative (Negative); RBC Urine Automated 0-4 /hpf (0-4); Specific Gravity Urine 1.008 (1.000-1.030); Urobilinogen Urine Negative (Negative); WBC Urine Automated 0 /hpf (0-5)
[2019-05-04 14:31] LABS: D Dimer 210 ug/L FEU (0-500)
[2019-05-04] MEDS ORDERED: LEVOFLOXACIN/D5W 750 MG/150 ML BAG IV SCH (16:00)
[2019-05-04] MEDS ORDERED: ACETAMINOPHEN 325 MG TAB PO PRN (18:31)
[2019-05-04] MEDS ORDERED: ALBUTEROL HFA 8 GM INHALER INH PRN (18:31)
[2019-05-04] MEDS: SODIUM CHLORIDE 0.9% 1000ML 1,000 ML IV SCH (18:34)
--- NOTE | 2019-05-04 18:34 | Emergency Department Note ---
Entered by Doris Owens acting as a scribe for Rikki Rico DO History of Present Illness General Chief complaint: Tachycardia Stated complaint: ELEVATED HEART RATE Source: patient History of Present Illness Provider complaint: palpitations Onset (ago): hour(s) 9 Location: chest Severity: similar to prior episodes Pain Consistency: + constant Maximum Pain Intensity: 0 Associated symptoms: + shortness of breath and + other (-runny nose); no cough The patient is a 29 year old female who presents to the Emergency Room with complaints of palpitations since 0400 today. The patient mentions that she woke up short of breath and used her humidifier. The patient reports that after using her Albuterol she developed tachycardia. She notes that she has a history of asthma and usually develops tachycardia after using her inhaler. She mentions that she went to acute care this morning and they referred her to the ED. The patient mentions that she developed heart burn this morning at 800 after her second dose of Albuterol. She reports that her last dosage was at 1100 today. She denies any cough, runny nose. She denies any history of blood clots or cancer. She mentions that her last menstrual period was due 3 days ago. Home Medications Home Medications Medication Instructions Recorded Confirmed Type albuterol sulfate 90 mcg/actuation 2 puffs INH Q6H PRN 01/06/18 05/04/19 History aerosol inhaler rizatriptan 10 mg tablet 10 mg PO Q2H PRN 01/06/18 05/04/19 History tramadol 50 mg tablet 50 mg PO DAILY PRN tab 01/06/18 05/04/19 History budesonide 3 mg 9 mg PO DAILY #90 ea 03/23/19 05/04/19 Rx capsule,delayed,extended release Allergies Allergy/AdvReac Type Severity Reaction Status Date / Time clavulanic acid Allergy Severe Anaphylaxis Verified 05/04/19 11:25 [From Augmentin] amoxicillin Allergy Unknown Anaphylaxis Verified 05/04/19 11:25 Past Med/Surg History Medical History Anxiety disorder (Chronic) Asthma (Chronic) Depressive disorder (Chronic) Headache, chronic migraine without aura (Chronic) Osteoarthritis (Chronic) Surgical History History of breast biopsy (Chronic) History of recent maxillofacial surgery (Chronic) History of tubal ligation (Chronic) 2018 S/P lumpectomy, left breast Family History Denies family history of Ovarian cancer Prostate cancer Myocardial infarction Breast cancer Colorectal cancer Social History Preferred Language: Afghan Communication Ability: Effective Visual Impairment: No Limitations Hearing Ability: Normal 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 Beliefs That Will Affect Care: None marital status: Current Living Situation: Spouse current occupational status: employed current occupation: Employed at [employer] x 4 years Other Information That Helps Us Care for You: No Feels Safe at Home: Yes Safety Concerns: Feels Safe At This Time Smoking Status: Never smoker Hx Alcohol Use: Yes (2-3 drinks per week) Alcohol type: wine Hx Substance Use: No Childhood Exposure to Second-Hand Smoke: No Dental Care, Regularly: Yes Physical Activity Frequency: Daily Seatbelt Use: always Sunscreen Use: Yes Do you think of yourself as: straight/heterosexual Review of Systems See HPI for pertinent positives & negatives. and A total of 10 systems reviewed and were otherwise negative Physical Exam Vital Signs Vital Signs - 24 hr 05/04/19 12:48 05/04/19 13:15 05/04/19 13:17 Temperature 37.3 C Temperature Source Oral Pulse Rate 142 H 127 H Pulse Rate [Apical] 129 H Pulse Rate from SpO2 Sensor 128 H Pulse Rhythm [Apical] Regular Pulse Strength [Apical] Respiratory Rate 20 18 26 H Respiratory Effort / Characteristics Non-Labored Non-Labored Spontaneous Respiratory Depth Normal Normal Respiratory Pattern Regular Blood Pressure 130/93 130/75 Blood Pressure [Left Arm] 130/75 Blood Pressure Mean 105 92 Blood Pressure Mean [Left Arm] 93 Blood Pressure Position [Left Arm] Sitting Pulse Oximetry 100 100 99 Oxygen Delivery Method Room Air Room Air Sepsis Recent Fever Within 48 Hours No Sepsis Action Taken by Nursing No Action Required 05/04/19 13:24 05/04/19 13:30 05/04/19 14:00 Temperature Temperature Source Pulse Rate 128 H 121 H 119 H Pulse Rate [Apical] Pulse Rate from SpO2 Sensor 129 H 121 H 119 H Pulse Rhythm [Apical] Pulse Strength [Apical] Respiratory Rate 16 19 21 Respiratory Effort / Characteristics Respiratory Depth Respiratory Pattern Blood Pressure 119/76 111/75 Blood Pressure [Left Arm] Blood Pressure Mean 86 87 Blood Pressure Mean [Left Arm] Blood Pressure Position [Left Arm] Pulse Oximetry 100 100 100 Oxygen Delivery Method Sepsis Recent Fever Within 48 Hours Sepsis Action Taken by Nursing 05/04/19 14:02 05/04/19 14:30 05/04/19 14:31 Temperature Temperature Source Pulse Rate 119 H 119 H 116 H Pulse Rate [Apical] Pulse Rate from SpO2 Sensor 120 H 119 H 116 H Pulse Rhythm [Apical] Pulse Strength [Apical] Respiratory Rate 20 25 H 24 Respiratory Effort / Characteristics Respiratory Depth Respiratory Pattern Blood Pressure 118/73 Blood Pressure [Left Arm] Blood Pressure Mean 81 Blood Pressure Mean [Left Arm] Blood Pressure Position [Left Arm] Pulse Oximetry 100 99 100 Oxygen Delivery Method Sepsis Recent Fever Within 48 Hours Sepsis Action Taken by Nursing 05/04/19 14:40 05/04/19 14:51 05/04/19 15:01 Temperature Temperature Source Pulse Rate 118 H 119 H 129 H Pulse Rate [Apical] Pulse Rate from SpO2 Sensor 118 H 120 H Pulse Rhythm [Apical] Pulse Strength [Apical] Respiratory Rate 23 20 22 Respiratory Effort / Characteristics Respiratory Depth Respiratory Pattern Blood Pressure Blood Pressure [Left Arm] Blood Pressure Mean Blood Pressure Mean [Left Arm] Blood Pressure Position [Left Arm] Pulse Oximetry 99 99 Oxygen Delivery Method Room Air Room Air Room Air Sepsis Recent Fever Within 48 Hours Sepsis Action Taken by Nursing 05/04/19 15:10 05/04/19 15:21 05/04/19 15:30 Temperature Temperature Source Pulse Rate 122 H 125 H 125 H Pulse Rate [Apical] Pulse Rate from SpO2 Sensor 122 H 125 H 125 H Pulse Rhythm [Apical] Pulse Strength [Apical] Respiratory Rate 19 22 19 Respiratory Effort / Characteristics Respiratory Depth Respiratory Pattern Blood Pressure 117/64 Blood Pressure [Left Arm] Blood Pressure Mean 77 Blood Pressure Mean [Left Arm] Blood Pressure Position [Left Arm] Pulse Oximetry 98 98 98 Oxygen Delivery Method Room Air Room Air Room Air Sepsis Recent Fever Within 48 Hours Sepsis Action Taken by Nursing 05/04/19 15:31 05/04/19 15:40 05/04/19 15:53 Temperature 37.9 C H Temperature Source Oral Pulse Rate 126 H 123 H 125 H Pulse Rate [Apical] 127 H Pulse Rate from SpO2 Sensor 126 H 124 H 126 H Pulse Rhythm [Apical] Regular Pulse Strength [Apical] Normal Respiratory Rate 16 15 22 Respiratory Effort / Characteristics Non-Labored Spontaneous Respiratory Depth Normal Respiratory Pattern Blood Pressure Blood Pressure [Left Arm] 117/64 Blood Pressure Mean Blood Pressure Mean [Left Arm] 81 Blood Pressure Position [Left Arm] Sitting Pulse Oximetry 98 98 98 Oxygen Delivery Method Room Air Room Air Room Air Sepsis Recent Fever Within 48 Hours Sepsis Action Taken by Nursing 05/04/19 16:00 05/04/19 16:01 05/04/19 16:10 Temperature Temperature Source Pulse Rate 137 H 135 H 134 H Pulse Rate [Apical] Pulse Rate from SpO2 Sensor 136 H 134 H 136 H Pulse Rhythm [Apical] Pulse Strength [Apical] Respiratory Rate 24 22 28 H Respiratory Effort / Characteristics Respiratory Depth Respiratory Pattern Blood Pressure 113/78 Blood Pressure [Left Arm] Blood Pressure Mean 95 Blood Pressure Mean [Left Arm] Blood Pressure Position [Left Arm] Pulse Oximetry 98 99 99 Oxygen Delivery Method Room Air Room Air Room Air Sepsis Recent Fever Within 48 Hours Sepsis Action Taken by Nursing 05/04/19 16:20 05/04/19 16:30 05/04/19 16:31 Temperature Temperature Source Pulse Rate 128 H 128 H 128 H Pulse Rate [Apical] Pulse Rate from SpO2 Sensor 129 H 129 H 127 H Pulse Rhythm [Apical] Pulse Strength [Apical] Respiratory Rate 24 21 16 Respiratory Effort / Characteristics Respiratory Depth Respiratory Pattern Blood Pressure 102/71 Blood Pressure [Left Arm] Blood Pressure Mean 88 Blood Pressure Mean [Left Arm] Blood Pressure Position [Left Arm] Pulse Oximetry 100 98 99 Oxygen Delivery Method Room Air Room Air Room Air Sepsis Recent Fever Within 48 Hours Sepsis Action Taken by Nursing 05/04/19 16:40 05/04/19 16:50 05/04/19 17:00 Temperature Temperature Source Pulse Rate 129 H 128 H 133 H Pulse Rate [Apical] Pulse Rate from SpO2 Sensor 128 H 130 H 133 H Pulse Rhythm [Apical] Pulse Strength [Apical] Respiratory Rate 23 18 18 Respiratory Effort / Characteristics Respiratory Depth Respiratory Pattern Blood Pressure 88/69 L Blood Pressure [Left Arm] Blood Pressure Mean 79 Blood Pressure Mean [Left Arm] Blood Pressure Position [Left Arm] Pulse Oximetry 98 99 99 Oxygen Delivery Method Room Air Room Air Room Air Sepsis Recent Fever Within 48 Hours Sepsis Action Taken by Nursing 05/04/19 17:01 Temperature Temperature Source Pulse Rate 132 H Pulse Rate [Apical] Pulse Rate from SpO2 Sensor 130 H Pulse Rhythm [Apical] Pulse Strength [Apical] Respiratory Rate 21 Respiratory Effort / Characteristics Respiratory Depth Respiratory Pattern Blood Pressure Blood Pressure [Left Arm] Blood Pressure Mean Blood Pressure Mean [Left Arm] Blood Pressure Position [Left Arm] Pulse Oximetry 98 Oxygen Delivery Method Room Air Sepsis Recent Fever Within 48 Hours Sepsis Action Taken by Nursing GENERAL: alert, sitting up in bed, well appearing, no distress, non-toxic EYE EXAM: normal conjunctiva OROPHARYNX: no exudate, no erythema, lips, buccal mucosa, and tongue normal and mucous membranes are moist NECK: supple, no nuchal rigidity, no adenopathy, non-tender LUNGS: Faint wheezing bilateral. Normal chest wall mechanics HEART: Tachycardic rate, no murmurs, S1 normal and S2 normal ABDOMEN: abdomen soft, non-tender, normo-active bowel sounds, no masses, no rebound or guarding. BACK: Back is symmetrical on inspection and there is no deformity, no midline tenderness, no CVA tenderness. SKIN: no rashes and no bruising UPPER EXTREMITIES: upper extremities are grossly normal. LOWER EXTREMITIES: No pitting edema. NEURO EXAM: Normal sensorium, cranial nerves II-XII grossly intact, normal speech, no gross weakness of arms, no gross weakness of legs. Course Course ED COURSE: Vital signs were reviewed and showed tachycardic. The patients medical record was reviewed The above diagnostic studies were performed and reviewed. ED treatments and interventions as stated above. 1254: The patient was evaluated in room C12B. A complete history and physical examination was performed. 1359: I reevaluated the patient and she is still tachycardic. 1600: I discussed the patient's case with Dr. Newton- [facility] Hospitalist, she will accept the patient for further evaluation. 1608: Upon reevaluation, the patient is resting comfortably. I discussed my findings with the patient and she understands and agrees with the treatment plan. Based on the patients age, coexisting illnesses, exam and lab findings the decision to treat as an inpatient was made. The patient remained stable while under my care. The patient will be evaluated for further management. Administered Medications Discontinued Medications Sodium Chloride (Nss 1000ml) 2,000 mls @ 999 mls/hr IV .Q2H1M NETTIE Stop: 05/04/19 15:00 Last Infusion: 05/04/19 15:17 Dose: 0 mls/hr Documented by: [id number] Admin: 05/04/19 13:15 Dose: 999 mls/hr Documented by: [id number] Sodium Chloride (Nss 1000ml) 1,000 mls @ 999 mls/hr IV .Q1H1M ONE Stop: 05/04/19 13:59 Last Infusion: 05/04/19 15:33 Dose: 0 mls/hr Documented by: [id number] Admin: 05/04/19 14:41 Dose: 999 mls/hr Documented by: [id number] Levofloxacin/Dextrose (Levaquin/D5w) 750 mg in 150 mls @ 100 mls/hr IV Q24H NETTIE Stop: 06/15/19 15:59 Last Infusion: 05/04/19 17:57 Dose: 0 mls/hr Documented by: [id number] Admin: 05/04/19 16:26 Dose: 100 mls/hr Documented by: [id number] Medical Decision Making Differential Diagnosis Differential diagnoses includes but is not limited to pneumonia, bronchitis, COPD/Asthma exacerbation, pneumothorax, pulmonary embolism, congestive heart failure, acute coronary syndrome Medical Records Attestation: I reviewed the patient's medical records. Home Medications Current Medication List: was personally reviewed by me Laboratory Data Attestation: I reviewed the patient's lab results. Result diagrams: 05/04/19 13:10 05/04/19 13:10 Lab Results 05/04/19 05/04/19 05/04/19 Range/Units 13:00 13:10 13:10 WBC 19.60 H (4.8-10.8) K/uL RBC 4.47 (4.2-5.4) M/uL Hgb 14.1 (12.0-16.0) g/dL Hct 40.4 (37-47) % MCV 90.4 (80-100) fL MCH 31.5 (25-34) pg MCHC 34.9 (32-36) g/dL RDW Std Deviation 39.2 (36.4-46.3) fL RDW Coeff of Julianne 11.9 (11.5-14.5) % Plt Count 150 (130-400) K/uL MPV 10.5 H (7.4-10.4) fL Immature Gran % (Auto) 0.3 % Neut % (Auto) 90.8 % Lymph % (Auto) 2.9 % [place] % (Auto) 5.6 % Eos % (Auto) 0.2 % Baso % (Auto) 0.2 % Immature Gran # (Auto) 0.06 H (0.00-0.02) K/uL Neut # (Auto) 17.81 H (1.4-6.5) K/uL Lymph # (Auto) 0.57 L (1.2-3.4) K/uL [place] # (Auto) 1.10 H (0.11-0.59) K/uL Eos # (Auto) 0.03 (0-0.5) K/uL Baso # (Auto) 0.03 (0-0.2) K/uL PT 10.8 (9.0-12.0) Seconds INR 1.1 (0.9-1.1) APTT 26.6 (21.0-31.0) Seconds PTT Ratio 1.0 D-Dimer (0-500) ug/L FEU Sodium (136-145) mmol/L Potassium (3.5-5.1) mmol/L Chloride (98-107) mmol/L Carbon Dioxide (21-32) mmol/L Anion Gap (3-11) BUN (7-18) mg/dl Creatinine (0.6-1.2) mg/dl Est Cr Clr Drug Dosing ml/min Est GFR ( Amer) Est GFR (Non-Af Amer) BUN/Creatinine Ratio (10-20) Glucose (70-99) mg/dl Calcium (8.5-10.1) mg/dl Total Bilirubin (0.2-1) mg/dl AST (15-37) U/L ALT (12-78) U/L Alkaline Phosphatase (45-117) U/L Troponin I (0-0.045) ng/ml Total Protein (6.4-8.2) gm/dl Albumin (3.4-5.0) gm/dl Globulin (2.5-4.0) gm/dl Albumin/Globulin Ratio (0.9-2) TSH (0.300-4.500) uIu/ml HCG, Qual (Negative) Urine Color Yellow Urine Appearance Clear (Clear) Urine pH 7.0 (4.5-7.5) Ur Specific [place] 1.008 (1.000-1.030) Urine Protein Negative (Negative) Urine Glucose (UA) Negative (Negative) Urine Ketones Negative (Negative) Urine Blood Trace H (Negative) Urine Nitrite Negative (Negative) Urine Bilirubin Negative (Negative) Urine Urobilinogen Negative (Negative) Ur Leukocyte Esterase Negative (Negative) Urine WBC (Auto) 0 (0-5) /hpf Urine RBC (Auto) 0-4 (0-4) /hpf U Hyaline Cast (Auto) 0 (0-5) /lpf U Epithel Cells (Auto) 0-5 (0-5) /lpf Urine Bacteria (Auto) Negative (Negative) Influenza Type A Ag (Neg) Influenza Type B Ag (Neg) 05/04/19 05/04/19 05/04/19 Range/Units 13:10 13:10 13:10 WBC (4.8-10.8) K/uL RBC (4.2-5.4) M/uL Hgb (12.0-16.0) g/dL Hct (37-47) % MCV (80-100) fL MCH (25-34) pg MCHC (32-36) g/dL RDW Std Deviation (36.4-46.3) fL RDW Coeff of Julianne (11.5-14.5) % Plt Count (130-400) K/uL MPV (7.4-10.4) fL Immature Gran % (Auto) % Neut % (Auto) % Lymph % (Auto) % [place] % (Auto) % Eos % (Auto) % Baso % (Auto) % Immature Gran # (Auto) (0.00-0.02) K/uL Neut # (Auto) (1.4-6.5) K/uL Lymph # (Auto) (1.2-3.4) K/uL [place] # (Auto) (0.11-0.59) K/uL Eos # (Auto) (0-0.5) K/uL Baso # (Auto) (0-0.2) K/uL PT (9.0-12.0) Seconds INR (0.9-1.1) APTT (21.0-31.0) Seconds PTT Ratio D-Dimer 210 (0-500) ug/L FEU Sodium 137 (136-145) mmol/L Potassium 3.3 L (3.5-5.1) mmol/L Chloride 107 (98-107) mmol/L Carbon Dioxide 25 (21-32) mmol/L Anion Gap 5.0 (3-11) BUN 10 (7-18) mg/dl Creatinine 0.78 (0.6-1.2) mg/dl Est Cr Clr Drug Dosing 97.7 ml/min Est GFR ( Amer) 117.4 Est GFR (Non-Af Amer) 101.3 BUN/Creatinine Ratio 12.6 (10-20) Glucose 98 (70-99) mg/dl Calcium 8.6 (8.5-10.1) mg/dl Total Bilirubin 0.9 (0.2-1) mg/dl AST 16 (15-37) U/L ALT 24 (12-78) U/L Alkaline Phosphatase 48 (45-117) U/L Troponin I < 0.015 (0-0.045) ng/ml Total Protein 7.5 (6.4-8.2) gm/dl Albumin 3.8 (3.4-5.0) gm/dl Globulin 3.7 (2.5-4.0) gm/dl Albumin/Globulin Ratio 1.0 (0.9-2) TSH (0.300-4.500) uIu/ml HCG, Qual Negative (Negative) Urine Color Urine Appearance (Clear) Urine pH (4.5-7.5) Ur Specific [place] (1.000-1.030) Urine Protein (Negative) Urine Glucose (UA) (Negative) Urine Ketones (Negative) Urine Blood (Negative) Urine Nitrite (Negative) Urine Bilirubin (Negative) Urine Urobilinogen (Negative) Ur Leukocyte Esterase (Negative) Urine WBC (Auto) (0-5) /hpf Urine RBC (Auto) (0-4) /hpf U Hyaline Cast (Auto) (0-5) /lpf U Epithel Cells (Auto) (0-5) /lpf Urine Bacteria (Auto) (Negative) Influenza Type A Ag (Neg) Influenza Type B Ag (Neg) 05/04/19 05/04/19 Range/Units 13:10 16:05 WBC (4.8-10.8) K/uL RBC (4.2-5.4) M/uL Hgb (12.0-16.0) g/dL Hct (37-47) % MCV (80-100) fL MCH (25-34) pg MCHC (32-36) g/dL RDW Std Deviation (36.4-46.3) fL RDW Coeff of Julianne (11.5-14.5) % Plt Count (130-400) K/uL MPV (7.4-10.4) fL Immature Gran % (Auto) % Neut % (Auto) % Lymph % (Auto) % [place] % (Auto) % Eos % (Auto) % Baso % (Auto) % Immature Gran # (Auto) (0.00-0.02) K/uL Neut # (Auto) (1.4-6.5) K/uL Lymph # (Auto) (1.2-3.4) K/uL [place] # (Auto) (0.11-0.59) K/uL Eos # (Auto) (0-0.5) K/uL Baso # (Auto) (0-0.2) K/uL PT (9.0-12.0) Seconds INR (0.9-1.1) APTT (21.0-31.0) Seconds PTT Ratio D-Dimer (0-500) ug/L FEU Sodium (136-145) mmol/L Potassium (3.5-5.1) mmol/L Chloride (98-107) mmol/L Carbon Dioxide (21-32) mmol/L Anion Gap (3-11) BUN (7-18) mg/dl Creatinine (0.6-1.2) mg/dl Est Cr Clr Drug Dosing ml/min Est GFR ( Amer) Est GFR (Non-Af Amer) BUN/Creatinine Ratio (10-20) Glucose (70-99) mg/dl Calcium (8.5-10.1) mg/dl Total Bilirubin (0.2-1) mg/dl AST (15-37) U/L ALT (12-78) U/L Alkaline Phosphatase (45-117) U/L Troponin I (0-0.045) ng/ml Total Protein (6.4-8.2) gm/dl Albumin (3.4-5.0) gm/dl Globulin (2.5-4.0) gm/dl Albumin/Globulin Ratio (0.9-2) TSH 0.841 (0.300-4.500) uIu/ml HCG, Qual (Negative) Urine Color Urine Appearance (Clear) Urine pH (4.5-7.5) Ur Specific [place] (1.000-1.030) Urine Protein (Negative) Urine Glucose (UA) (Negative) Urine Ketones (Negative) Urine Blood (Negative) Urine Nitrite (Negative) Urine Bilirubin (Negative) Urine Urobilinogen (Negative) Ur Leukocyte Esterase (Negative) Urine WBC (Auto) (0-5) /hpf Urine RBC (Auto) (0-4) /hpf U Hyaline Cast (Auto) (0-5) /lpf U Epithel Cells (Auto) (0-5) /lpf Urine Bacteria (Auto) (Negative) Influenza Type A Ag Neg for Influ A (Neg) Influenza Type B Ag Neg for Influ B (Neg) Imaging Data Radiologist's Impression: Radiology results as stated below per my review and the radiologist's interpretation: XR chest 1V portable HISTORY: Dyspnea COMPARISON: None. FINDINGS: The lungs are clear. Cardiac silhouette is normal in size. No pleural effusions. No pneumothorax. IMPRESSION: No acute process. ACT 112: Negative or not required by law. Electronically signed by: Kelton Mcgregor M.D. 05/04/2019 1:18 PM ECG Data Attestation: I personally reviewed and interpreted this ECG as follows: Indication: + palpitations and + SOB/dyspnea Rate (beats per minute): 135 ECG Intervals/blocks: + Normal QT-c ECG [place]: + Normal ECG ST segments: + T-wave inversions (Inferior) ECG Findings: no PVCs Blood Pressure Blood Pressure Findings: Low blood pressure Blood Pressure Disposition: did not require urgent referral MDM Narrative Patient is a 29-year-old female who presents the ER for tachycardia. She is referred in by her PCP after being evaluated earlier today for tachycardia. Patient woke up this morning short of breath and does have a history of asthma. She used 3 treatments and has been persistently tachycardic. IV was established blood work was obtained and showed a leukocytosis of 19,000. D-dimer was negative. BMP with mild hypokalemia. LFTs bilirubin and troponin were negative. hCG negative. UA was negative. Influenza was negative. Chest x-ray without any focal infiltrate. Eventually after 3 hours and 3 L IV fluid she still remained persistently tachycardic and became febrile. With this in the persistent tachycardia she was given IV antibiotics. Lactate and blood cultures were obtained. She was discussed with the hospitalist and admitted for sepsis. Impression & Plan Sepsis, Bronchitis, Tachycardia Discharge Plan Visit Data Chief Complaint: Tachycardia Stated Complaint: ELEVATED HEART RATE ED Provider: Rikki Rico Discharge Problem: Sepsis, Bronchitis, Tachycardia Patient Disposition: Being Evaluated by Hospitalist Discharge Instructions Interventions: ED Discharge Assessment Last Done: 05/04/19 18:06 Discharge Problem: Sepsis Qualifiers: Sepsis type: sepsis due to unspecified organism Sepsis acute organ dysfunction status: unspecified Qualified Code(s): A41.9 - Sepsis, unspecified organism The scribe's documentation has been prepared under my direction and personally reviewed by me in its entirety. I confirm that the note above accurately reflects all work, treatment, procedures, and medical decision making performed by me.
[2019-05-04 18:59] LABS: Magnesium 1.5 mg/dl (1.8-2.4); Phosphorus 2.9 mg/dl (2.5-4.9)
[2019-05-04] MEDS: DOXYCYCLINE HYCLATE 100 MG in DEXTROSE 5% 100 ML IV SCH (20:57)
[2019-05-04] MEDS ORDERED: RIZATRIPTAN BENZOATE 10 MG TAB PO PRN (21:05)
[2019-05-04] MEDS ORDERED: TRAMADOL HCL 50 MG TABLET PO PRN (21:05)
--- NOTE | 2019-05-04 21:38 | History & Physical Report ---
Date of Service May 04, 2019 Assessment & Plan (1) Tachycardia: Patient afebrile, hemodynamically stable, adequate oxygenation on room air. She is not in pain or distress. Denies anxiety. Has stable H and H. D- dimer = 210. Sinus tachycardia possibly secondary to medication effects. However, concerning persistence Admit to medical floor telemetry monitoring Continue IV fluids May consider using Xopenex rather than albuterol to avoid tachycardia response in the future Present on Admission?: Yes (2) Leukocytosis: Patient with neutrophil predominant leukocytosis with WBC = 19.6. As abov e, she is afebrile, hemodynamically stable. Does not appear to be septic or toxic. No overt evidence of infection. UA unremarkable, flu negative, chest x- ray with no acute process. Uncertain significance at this time CBC in a.m. To monitor trend Doxycycline 100 mg twice daily Present on Admission?: Yes (3) Headache, chronic migraine without aura: Patient developing a headache now. Continue rizatriptan as needed Continue tramadol as needed Present on Admission?: Yes (4) Asthma: Patient with mild persistent asthma. She has an albuterol MDI at home which she reports she rarely uses. Episode today possibly secondary to inhaled mold from the humidifier? She presently is breathing comfortably, no distress, no wheeze/cough, adequate oxygenation on room air Continue albuterol as needed Consider Xopenex F/E/N- NSS at 80mL/hr x 2 L, Monitor electrolytes, regular diet Ppx -low risk for DVT Codefull Dispoadmit to medical floor with telemetry monitoring History of Present Illness Chief Complaint: Tachycardia Primary Care Provider: DO Catie Chavez Jacek is a 29-year-old female with history of anxiety/depression, asthma, migraine presenting with shortness of breath and tachycardia. Patient reports using a humidifier last evening but may have contained moldy water. At 04 100 she woke from sleep acutely short of breath with wheeze. She took her Ventolin MDI at 04:00, 08:00 and again at 11:00 with minimal relief. Patient typically has a tachycardia after albuterol. She denies fever/chills/sweats/cough/sputum/URI or flulike symptoms. Denies abdominal pain, nausea, vomiting, diarrhea, constipation. Denies dysuria. Presents to the ER he was found to be afebrile, tachycardic, blood pressure stable, adequate oxygenation on room air. Intake labs with leukocytosis, WBC = 19.6 with elevated neutrophils. Patient remained in sinus tachycardia with heart rate ranging [id number]. She was administered IV fluid with no response therefore admission requested by ER ER course: Levaquin, normal saline x3 L Allergies Allergy/AdvReac Type Severity Reaction Status Date / Time clavulanic acid Allergy Severe Anaphylaxis Verified 05/04/19 11:25 [From Augmentin] amoxicillin Allergy Unknown Anaphylaxis Verified 05/04/19 11:25 Home Medications Home Medications Medication Instructions Recorded Confirmed Type albuterol sulfate 90 mcg/actuation 2 puffs INH Q6H PRN 01/06/18 05/04/19 History aerosol inhaler rizatriptan 10 mg tablet 10 mg PO Q2H PRN 01/06/18 05/04/19 History tramadol 50 mg tablet 50 mg PO DAILY PRN tab 01/06/18 05/04/19 History budesonide 3 mg 9 mg PO DAILY #90 ea 03/23/19 05/04/19 Rx capsule,delayed,extended release Past Med/Surg History Medical History Anxiety disorder (Chronic) Asthma (Chronic) Depressive disorder (Chronic) Headache, chronic migraine without aura (Chronic) Osteoarthritis (Chronic) Surgical History History of breast biopsy (Chronic) History of recent maxillofacial surgery (Chronic) History of tubal ligation (Chronic) 2018 S/P lumpectomy, left breast Family History Denies family history of Ovarian cancer Prostate cancer Myocardial infarction Breast cancer Colorectal cancer Social History Preferred Language: Nigerien Communication Ability: Effective Visual Impairment: No Limitations Hearing Ability: Normal Unit [employer] Manager Required: No Beliefs That Will Affect Care: None marital status: Current Living Situation: Spouse current occupational status: employed current occupation: Employed at [employer] x 4 years Other Information That Helps Us Care for You: No Feels Safe at Home: Yes Safety Concerns: Feels Safe At This Time Smoking Status: Never smoker Hx Alcohol Use: Yes (2-3 drinks per week) Alcohol type: wine Hx Substance Use: No Childhood Exposure to Second-Hand Smoke: No Dental Care, Regularly: Yes Physical Activity Frequency: Daily Seatbelt Use: always Sunscreen Use: Yes Do you think of yourself as: straight/heterosexual Review of Systems Review of Systems: All systems reviewed & are unremarkable except as noted in HPI & below Physical Exam Physical Exam: General: patient resting comfortably, NAD, non-toxic in appearance, AA&O x 4 Skin: warm, dry, intact, no rashes or lesions HEENT: NC/AT, PERRL, EOMI, anicteric sclera, conjunctiva without injection, external ear normal to inspection and nontender, nares patent, moist mucus m embranes, dentition intact, no oropharyngeal lesions, neck supple, trachea midline, no LAD, no thyromegaly, no JVD Heart: +S1/S2, regular, tachycardic, no m/r/g Lungs: equal air entry bilaterally, no rales/rhonchi/wheezes Abd: +BS, soft, NT/ND, no masses/organomegaly/ascites Ext: warm, 2+ pulses in UE/LE bilaterally, no clubbing/cyanosis or edema Neuro: nonfocal, patient AA&O x 4, speech intact, no facial droop, moving all extremities on command with equal strength 5/5 Results & Data Vital Signs (Past 12 Hours) Vital Signs Temp Pulse Pulse Resp BP BP Pulse Ox 05/04/19 19:18 119 H 05/04/19 18:35 37.5 C 118 H 18 125/77 100 05/04/19 17:50 120 H 20 98 05/04/19 17:41 136 H 27 H 98 05/04/19 17:31 130 H 23 98 05/04/19 17:30 124 H 26 H 104/68 98 05/04/19 17:20 126 H 19 99 05/04/19 17:10 132 H 32 H 99 05/04/19 17:01 132 H 21 98 05/04/19 17:00 133 H 18 88/69 L 99 05/04/19 16:50 128 H 18 99 05/04/19 16:40 129 H 23 98 05/04/19 16:31 128 H 16 99 05/04/19 16:30 128 H 21 102/71 98 05/04/19 16:20 128 H 24 100 05/04/19 16:10 134 H 28 H 99 05/04/19 16:01 135 H 22 99 05/04/19 16:00 137 H 24 113/78 98 05/04/19 15:53 125 H 22 98 05/04/19 15:40 123 H 15 98 05/04/19 15:31 37.9 C H 126 H 127 H 16 117/64 98 05/04/19 15:30 125 H 19 117/64 98 05/04/19 15:21 125 H 22 98 05/04/19 15:10 122 H 19 98 05/04/19 15:01 129 H 22 05/04/19 14:51 119 H 20 99 05/04/19 14:40 118 H 23 99 05/04/19 14:31 116 H 24 100 05/04/19 14:30 119 H 25 H 118/73 99 05/04/19 14:02 119 H 20 100 05/04/19 14:00 119 H 21 111/75 100 05/04/19 13:30 121 H 19 119/76 100 05/04/19 13:24 128 H 16 100 05/04/19 13:17 127 H 26 H 130/75 99 05/04/19 13:15 129 H 18 130/75 100 05/04/19 12:48 37.3 C 142 H 20 130/93 100 Laboratory Results Lab Results 05/04/19 05/04/19 05/04/19 Range/Units 13:00 13:10 13:10 WBC 19.60 H (4.8-10.8) K/uL RBC 4.47 (4.2-5.4) M/uL Hgb 14.1 (12.0-16.0) g/dL Hct 40.4 (37-47) % MCV 90.4 (80-100) fL MCH 31.5 (25-34) pg MCHC 34.9 (32-36) g/dL RDW Std Deviation 39.2 (36.4-46.3) fL RDW Coeff of Julianne 11.9 (11.5-14.5) % Plt Count 150 (130-400) K/uL MPV 10.5 H (7.4-10.4) fL Immature Gran % (Auto) 0.3 % Neut % (Auto) 90.8 % Lymph % (Auto) 2.9 % Nobles % (Auto) 5.6 % Eos % (Auto) 0.2 % Baso % (Auto) 0.2 % Immature Gran # (Auto) 0.06 H (0.00-0.02) K/uL Neut # (Auto) 17.81 H (1.4-6.5) K/uL Lymph # (Auto) 0.57 L (1.2-3.4) K/uL Nobles # (Auto) 1.10 H (0.11-0.59) K/uL Eos # (Auto) 0.03 (0-0.5) K/uL Baso # (Auto) 0.03 (0-0.2) K/uL PT 10.8 (9.0-12.0) Seconds INR 1.1 (0.9-1.1) APTT 26.6 (21.0-31.0) Seconds PTT Ratio 1.0 D-Dimer (0-500) ug/L FEU Sodium (136-145) mmol/L Potassium (3.5-5.1) mmol/L Chloride (98-107) mmol/L Carbon Dioxide (21-32) mmol/L Anion Gap (3-11) BUN (7-18) mg/dl Creatinine (0.6-1.2) mg/dl Est Cr Clr Drug Dosing ml/min Est GFR ( Amer) Est GFR (Non-Af Amer) BUN/Creatinine Ratio (10-20) Glucose (70-99) mg/dl Calcium (8.5-10.1) mg/dl Phosphorus (2.5-4.9) mg/dl Magnesium (1.8-2.4) mg/dl Total Bilirubin (0.2-1) mg/dl AST (15-37) U/L ALT (12-78) U/L Alkaline Phosphatase (45-117) U/L Troponin I (0-0.045) ng/ml Total Protein (6.4-8.2) gm/dl Albumin (3.4-5.0) gm/dl Globulin (2.5-4.0) gm/dl Albumin/Globulin Ratio (0.9-2) TSH (0.300-4.500) uIu/ml HCG, Qual (Negative) Urine Color Yellow Urine Appearance Clear (Clear) Urine pH 7.0 (4.5-7.5) Ur Specific Whitefield 1.008 (1.000-1.030) Urine Protein Negative (Negative) Urine Glucose (UA) Negative (Negative) Urine Ketones Negative (Negative) Urine Blood Trace H (Negative) Urine Nitrite Negative (Negative) Urine Bilirubin Negative (Negative) Urine Urobilinogen Negative (Negative) Ur Leukocyte Esterase Negative (Negative) Urine WBC (Auto) 0 (0-5) /hpf Urine RBC (Auto) 0-4 (0-4) /hpf U Hyaline Cast (Auto) 0 (0-5) /lpf U Epithel Cells (Auto) 0-5 (0-5) /lpf Urine Bacteria (Auto) Negative (Negative) Influenza Type A Ag (Neg) Influenza Type B Ag (Neg) 05/04/19 05/04/19 05/04/19 Range/Units 13:10 13:10 13:10 WBC (4.8-10.8) K/uL RBC (4.2-5.4) M/uL Hgb (12.0-16.0) g/dL Hct (37-47) % MCV (80-100) fL MCH (25-34) pg MCHC (32-36) g/dL RDW Std Deviation (36.4-46.3) fL RDW Coeff of Julianne (11.5-14.5) % Plt Count (130-400) K/uL MPV (7.4-10.4) fL Immature Gran % (Auto) % Neut % (Auto) % Lymph % (Auto) % Nobles % (Auto) % Eos % (Auto) % Baso % (Auto) % Immature Gran # (Auto) (0.00-0.02) K/uL Neut # (Auto) (1.4-6.5) K/uL Lymph # (Auto) (1.2-3.4) K/uL Nobles # (Auto) (0.11-0.59) K/uL Eos # (Auto) (0-0.5) K/uL Baso # (Auto) (0-0.2) K/uL PT (9.0-12.0) Seconds INR (0.9-1.1) APTT (21.0-31.0) Seconds PTT Ratio D-Dimer 210 (0-500) ug/L FEU Sodium 137 (136-145) mmol/L Potassium 3.3 L (3.5-5.1) mmol/L Chloride 107 (98-107) mmol/L Carbon Dioxide 25 (21-32) mmol/L Anion Gap 5.0 (3-11) BUN 10 (7-18) mg/dl Creatinine 0.78 (0.6-1.2) mg/dl Est Cr Clr Drug Dosing 97.7 ml/min Est GFR ( Amer) 117.4 Est GFR (Non-Af Amer) 101.3 BUN/Creatinine Ratio 12.6 (10-20) Glucose 98 (70-99) mg/dl Calcium 8.6 (8.5-10.1) mg/dl Phosphorus (2.5-4.9) mg/dl Magnesium (1.8-2.4) mg/dl Total Bilirubin 0.9 (0.2-1) mg/dl AST 16 (15-37) U/L ALT 24 (12-78) U/L Alkaline Phosphatase 48 (45-117) U/L Troponin I < 0.015 (0-0.045) ng/ml Total Protein 7.5 (6.4-8.2) gm/dl Albumin 3.8 (3.4-5.0) gm/dl Globulin 3.7 (2.5-4.0) gm/dl Albumin/Globulin Ratio 1.0 (0.9-2) TSH (0.300-4.500) uIu/ml HCG, Qual Negative (Negative) Urine Color Urine Appearance (Clear) Urine pH (4.5-7.5) Ur Specific Whitefield (1.000-1.030) Urine Protein (Negative) Urine Glucose (UA) (Negative) Urine Ketones (Negative) Urine Blood (Negative) Urine Nitrite (Negative) Urine Bilirubin (Negative) Urine Urobilinogen (Negative) Ur Leukocyte Esterase (Negative) Urine WBC (Auto) (0-5) /hpf Urine RBC (Auto) (0-4) /hpf U Hyaline Cast (Auto) (0-5) /lpf U Epithel Cells (Auto) (0-5) /lpf Urine Bacteria (Auto) (Negative) Influenza Type A Ag (Neg) Influenza Type B Ag (Neg) 05/04/19 05/04/19 05/04/19 Range/Units 13:10 13:10 16:05 WBC (4.8-10.8) K/uL RBC (4.2-5.4) M/uL Hgb (12.0-16.0) g/dL Hct (37-47) % MCV (80-100) fL MCH (25-34) pg MCHC (32-36) g/dL RDW Std Deviation (36.4-46.3) fL RDW Coeff of Julianne (11.5-14.5) % Plt Count (130-400) K/uL MPV (7.4-10.4) fL Immature Gran % (Auto) % Neut % (Auto) % Lymph % (Auto) % Nobles % (Auto) % Eos % (Auto) % Baso % (Auto) % Immature Gran # (Auto) (0.00-0.02) K/uL Neut # (Auto) (1.4-6.5) K/uL Lymph # (Auto) (1.2-3.4) K/uL Nobles # (Auto) (0.11-0.59) K/uL Eos # (Auto) (0-0.5) K/uL Baso # (Auto) (0-0.2) K/uL PT (9.0-12.0) Seconds INR (0.9-1.1) APTT (21.0-31.0) Seconds PTT Ratio D-Dimer (0-500) ug/L FEU Sodium (136-145) mmol/L Potassium (3.5-5.1) mmol/L Chloride (98-107) mmol/L Carbon Dioxide (21-32) mmol/L Anion Gap (3-11) BUN (7-18) mg/dl Creatinine (0.6-1.2) mg/dl Est Cr Clr Drug Dosing ml/min Est GFR ( Amer) Est GFR (Non-Af Amer) BUN/Creatinine Ratio (10-20) Glucose (70-99) mg/dl Calcium (8.5-10.1) mg/dl Phosphorus 2.9 (2.5-4.9) mg/dl Magnesium 1.5 L (1.8-2.4) mg/dl Total Bilirubin (0.2-1) mg/dl AST (15-37) U/L ALT (12-78) U/L Alkaline Phosphatase (45-117) U/L Troponin I (0-0.045) ng/ml Total Protein (6.4-8.2) gm/dl Albumin (3.4-5.0) gm/dl Globulin (2.5-4.0) gm/dl Albumin/Globulin Ratio (0.9-2) TSH 0.841 (0.300-4.500) uIu/ml HCG, Qual (Negative) Urine Color Urine Appearance (Clear) Urine pH (4.5-7.5) Ur Specific Whitefield (1.000-1.030) Urine Protein (Negative) Urine Glucose (UA) (Negative) Urine Ketones (Negative) Urine Blood (Negative) Urine Nitrite (Negative) Urine Bilirubin (Negative) Urine Urobilinogen (Negative) Ur Leukocyte Esterase (Negative) Urine WBC (Auto) (0-5) /hpf Urine RBC (Auto) (0-4) /hpf U Hyaline Cast (Auto) (0-5) /lpf U Epithel Cells (Auto) (0-5) /lpf Urine Bacteria (Auto) (Negative) Influenza Type A Ag Neg for Influ A (Neg) Influenza Type B Ag Neg for Influ B (Neg) Diagnostic Findings XR chest 1V portable HISTORY: Dyspnea COMPARISON: None. FINDINGS: The lungs are clear. Cardiac silhouette is normal in size. No pleural effusions. No pneumothorax. IMPRESSION: No acute process. ACT 112: Negative or not required by law. Electronically signed by: Kelton Mcgregor M.D. 05/04/2019 1:18 PM Dictated: 05/04/19 1317 Transcribed: 05/04/19 1317 ECG Additional Comments: Study shows sinus tachycardia 135 bpm, normal axis, NV = 142, QRS = 74, QTc = 426, no acute ST changes Code Status & VTE Plan Code Status Full VTE Prophylaxis Plan Reason for no VTE drug order: Treatment not indicated Reason for no VTE mechanical prophylaxis: Treatment not indicated PG Care Time/CCT Total # of Minutes Spent Total Time Spent with Patient: Total time spent is greater than 50% in coordination of care (as documented) at patient's floor/unit and/or counseling patient: Coding Level of Care Code 99990 Initial Inpt Care Lvl 3 Diagnoses Tachycardia R00.0 Leukocytosis D72.829 Leukocytosis type: unspecified Headache, chronic migraine without aura G43.709 Status migrainosus presence: without status migrainosus Intractability: not intractable Asthma J45.30 Asthma severity: mild Asthma persistence: persistent Asthma complication type: uncomplicated (1) Headache, chronic migraine without aura Status migrainosus presence: without status migrainosus Intractability: not intractable Qualified Code(s): G43.709 - Chronic migraine without aura, not intractable, without status migrainosus (2) Asthma Asthma severity: mild Asthma persistence: persistent Asthma complication type: uncomplicated Qualified Code(s): J45.30 - Mild persistent asthma, uncomplicated (3) Leukocytosis Leukocytosis type: unspecified Qualified Code(s): D72.829 - Elevated white blood cell count, unspecified
--- NOTE | 2019-05-05 06:16 | Electrocardiogram Report ---
Test Reason : Blood Pressure : / mmHG Vent. Rate : 135 BPM Atrial Rate : 135 BPM P-R Int : 142 ms QRS Dur : 074 ms QT Int : 284 ms P-R-T Axes : 055 057 -06 degrees QTc Int : 426 ms Sinus tachycardia Nonspecific T wave abnormality Abnormal ECG No previous ECGs available Confirmed by Isac Anguiano ([id number]) on 05/05/2019 6:15:54 AM Referred By: Confirmed By:Isac Anguiano
[2019-05-05] MEDS: SODIUM CHLORIDE 0.9% 1000ML 1,000 ML IV SCH (06:36)
[2019-05-05 08:09] LABS: Basophils # (auto) 0.03 K/uL (0-0.2); Basophils % (auto) 0.2 %; Eosinophils # (auto) 0.46 K/uL (0-0.5); Eosinophils % (auto) 2.6 %; Hematocrit (blood only) 33.9 % (37-47); Hemoglobin 11.7 g/dL (12.0-16.0); Immature Granulocytes # (auto) 0.05 K/uL (0.00-0.02); Immature Granulocytes % (auto) 0.3 %; Lymphocytes # (auto) 1.68 K/uL (1.2-3.4); Lymphocytes % (auto) 9.7 %; Mean Corpuscular Hemoglobin 31.4 pg (25-34); Mean Corpuscular Hgb Conc 34.5 g/dL (32-36); Mean Corpuscular Volume 90.9 fL (80-100); Mean Platelet Volume 10.9 fL (7.4-10.4); Monocytes # (auto) 0.76 K/uL (0.11-0.59); Monocytes % (auto) 4.4 %; Neutrophils # (auto) 14.41 K/uL (1.4-6.5); Neutrophils % (auto) 82.8 %; Platelet Count 134 K/uL (130-400); RDW Coefficient of Variation 12.1 % (11.5-14.5); RDW Standard Deviation 40.4 fL (36.4-46.3); Red Blood Count 3.73 M/uL (4.2-5.4); White Blood Count 17.39 K/uL (4.8-10.8)
[2019-05-05] MEDS ORDERED: POTASSIUM CHLORIDE 20 MEQ TABCR PO ONE (08:15)
[2019-05-05 08:40] LABS: BUN Creatinine Ratio 10.8 (10-20); Calcium 8.3 mg/dl (8.5-10.1); Creatinine Clr Calc Pharmacy 113.5 ml/min; Est GFR (African American) 135.1; Est GFR (Non-African American) 116.6; Potassium 3.5 mmol/L (3.5-5.1)
[2019-05-05] MEDS: DOXYCYCLINE HYCLATE 100 MG in DEXTROSE 5% 100 ML IV SCH ×2 (08:45→20:14)
[2019-05-05 08:53] LABS: Lyme Ab IgG w/WB Rflx Negative (Negative)
[2019-05-05 08:54] LABS: Lyme Ab IgM w/WB Rflx Negative (Negative)
--- NOTE | 2019-05-05 09:58 | Hospitalist Progress Note ---
Date of Service May 05, 2019 Assessment & Plan (1) Tachycardia: Pt is a 29yo with a Hx of Anxiety/Depression, Asthma, Migraines and lymphocytic colitis who presented to the ED with palpitations and was noted to have a persistent tachycardia. Persistent tachycardia -Pt with HR 120s-130s persistently since admission, associated with orthopnea -EKG with sinus tach, rate of 135, qtc 426. Trops negative. -Echo with EF 60-65%, no noted wall motion abnormalities. -TSH normal, Lyme Negative -D-dimer normal, CTA with NO PE, but noted a "a bilobed 22 mm nodular focus within the anterior superior mediastinum" with increasing nodularity which possibly represents an epithelial thymic neoplasm vs thymic hyperplasia -will consult thoracic surgery -switched home albuterol to levalbuterol given tachycardia, continue as needed -continue IV fluids Leukocytosis -WBC elevated >38891 on admission, downtrending today, pt afebrile -flu negative, Lyme negative, chest XR unremarkable, urine with only trace blood, blood Cx x2 pending -Unsure of the cause but could possibly be secondary to this thymic mass noted. -will discontinue doxycycline Asthma -Pt with hx of mild persistent asthma -continue levalbuterol as needed -hold home albuterol Migraine Headaches -continue home rizatriptan 10mg q2h prn and tramadol 50mg daily prn FEN/GI: regular diet, fluids DVT prophylaxis: low risk, ambulation CODE STATUS: Full Dispo: discharge pending thoracic surgery consult and recs Admission and Anticipated Discharge Date Admission Date: May 04, 2019 Supervising Physician Co-Signing Physician Notes I personally examined the patient and verified all anderson points of history and exam, discussed case, and agree with decision making with Dr Davenport. Short of breath at times like she is breathing through a straw. Worse whenever she lays flat. Heart rates have improved. Vitals noted, in general she is awake and alert pleasant no distress. HEENT normocephalic atraumatic mucous membranes moist. Breathing unlabored no accessory muscle use good effort. Skin shows no rashes no pallor or icterus. dyspnea - ?related to thymus enlargement - ask thoracic for opinion. fortunately very stable, but since symptoms are quite distressing will try to get plan solidified prior to discharge. tachycardia - likely dyspnea + albuterol originally - now just dypsnea. otherwise as above Subjective Pt seen this AM, sitting up in bed eating in no acute distress. States that she has episodes of SOB depending on the position she is in; worse when she lays down and better when she sits up. Last episode this morning at 5AM. States she feels like she is "breathing through a straw". 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 Has a headache and chest pain that resolved. Also notes that she had a 45min episode of numbness and tingling of her mouth and left hand in the ED. But denies blurry vision, cough, runny nose or sore throat, abdominal pain, diarrhea or constipation. Review of Systems Review of Systems: All systems reviewed & are unremarkable except as noted in Subjective Physical Exam Physical Exam: General: Alert, oriented. No acute distress, sitting up in bed. Skin: No noted rashes or bruises Psych: Appropriate mood and affect Neuro: CNII-XII grossly intact, strength 5/5 in UE and LE bilaterally HEENT: NC/AT Chest: Nontender to palpation. CV: RRR, Normal s1, s2. No murmurs appreciated Resp: Breath sounds clear bilaterally, no increased effort of breathing. No crackles/rhonchi/rales. Good air movement. Abdomen: Soft, nontender, nondistended. No guarding. No organomegaly appreciated. Extremities: No edema in lower extremities bilaterally. Results & Data ([facility]) Vital Signs (Past 12 Hours) Vital Signs Temp Pulse Pulse Resp BP Pulse Ox 05/05/19 07:49 95 H 05/05/19 07:26 36.9 C 102 H 18 106/66 98 05/05/19 04:00 36.8 C 101 H 20 133/74 97 05/04/19 23:51 95 H 05/04/19 23:00 37 C 107 H 20 121/79 98 Resident Activity Tracking Resident Involvement: Resident Care Provided Care Provided: Adult Hospital Medicine
[2019-05-05] MEDS ORDERED: OPTIRAY 320 125ml IV PRN (10:13)
--- NOTE | 2019-05-05 10:39 | CT Scan Report ---
CT ANGIOGRAM OF THE CHEST CLINICAL HISTORY: Atypical chest pain. Possible pulmonary embolism. SHORTNESS OF BREATH COMPARISON STUDY: Chest x-ray dated 05/04/2019, neck CT scan dated 02/18/2017 TECHNIQUE: Following the IV administration of 120 mL of Optiray-320, CT angiogram of the thorax was p erformed from the thoracic inlet to the lung bases utilizing the pulmonary embolus protocol. Images a re reviewed in the axial, sagittal, and coronal planes. IV contrast was administered without complica tion. MIP imaging was performed. A dose lowering technique was utilized adhering to the principles o f ALARA. CT DOSE: 237.73 mGy.cm FINDINGS: There is a bilobed 22 mm nodular focus within the anterior superior mediastinum. There is perhaps sli ghtly increased nodularity as compared the prior February 2017 study. This likely represents thymic t issue. While an epithelial thymic neoplasm cannot be excluded with absolute certainty, given the terrell g age of the patient, and the relative stability, this lesion is likely benign possibly representing thymic hyperplasia There was no evidence of thoracic aortic dilatation. There were no pulmonary artery filling defects to indicate acute pulmonary embolism. No pleural effusions are visualized. There is no pneumothorax. There is no lobar consolidation. There are dependent opacities which are fe lt to be atelectatic. IMPRESSION: 1. No evidence of acute pulmonary embolism 2. Bilateral 22 mm nodular focus within the anterior superior mediastinum. This is felt to relate to the thymus, and statistically represents benign thymic hyperplasia. There is only equivocally increas ed nodularity as compared the prior February 2017 study ACT 112: Negative or not required by law. Electronically signed by: Ronan Arvizu M.D. 05/05/2019 10:37 AM
--- NOTE | 2019-05-05 13:10 | XCELERA ---
[id number] [id number]
[2019-05-05] MEDS ORDERED: LEVALBUTEROL HCL 0.63 MG/3 ML NEB NEB PRN (16:46)
--- NOTE | 2019-05-05 17:35 | Billing Data ---
Date of Service May 05, 2019 Coding Level of Care Code 32272 Subseq Hosp Care Lvl 3
[2019-05-06 06:02] LABS: Basophils # (auto) 0.03 K/uL (0-0.2); Basophils % (auto) 0.3 %; Eosinophils # (auto) 0.66 K/uL (0-0.5); Eosinophils % (auto) 5.6 %; Hematocrit (blood only) 34.7 % (37-47); Immature Granulocytes # (auto) 0.03 K/uL (0.00-0.02); Immature Granulocytes % (auto) 0.3 %; Lymphocytes # (auto) 2.05 K/uL (1.2-3.4); Lymphocytes % (auto) 17.5 %; Mean Corpuscular Hemoglobin 31.5 pg (25-34); Mean Corpuscular Hgb Conc 34.6 g/dL (32-36); Mean Corpuscular Volume 91.1 fL (80-100); Mean Platelet Volume 10.6 fL (7.4-10.4); Monocytes % (auto) 6.8 %; Neutrophils # (auto) 8.17 K/uL (1.4-6.5); Neutrophils % (auto) 69.5 %; Platelet Count 159 K/uL (130-400); RDW Coefficient of Variation 12.1 % (11.5-14.5); RDW Standard Deviation 40.2 fL (36.4-46.3); Red Blood Count 3.81 M/uL (4.2-5.4); White Blood Count 11.74 K/uL (4.8-10.8)
[2019-05-06 06:36] LABS: Albumin Level 3.1 gm/dl (3.4-5.0); BUN Creatinine Ratio 10.7 (10-20); Calcium 8.5 mg/dl (8.5-10.1); Creatinine Clr Calc Pharmacy 107.2 ml/min; Est GFR (African American) 129.3; Est GFR (Non-African American) 111.6; Potassium 3.9 mmol/L (3.5-5.1)
[2019-05-06 06:40] LABS: Albumin Globulin Ratio 0.9 (0.9-2); Bilirubin,Total 0.4 mg/dl (0.2-1); Globulin 3.4 gm/dl (2.5-4.0); Total Protein 6.5 gm/dl (6.4-8.2)
--- NOTE | 2019-05-06 13:38 | Discharge Summary ---
Date of Service May 06, 2019 Admission HPI Per Admitting Provider Catie Read is a 29-year-old female with history of anxiety/depression, asthma, migraine presenting with shortness of breath and tachycardia. Patient reports using a humidifier last evening but may have contained moldy water. At 04 100 she woke from sleep acutely short of breath with wheeze. She took her Ventolin MDI at 04:00, 08:00 and again at 11:00 with minimal relief. Patient typically has a tachycardia after albuterol. She denies fever/chills/sweats/cough/sputum/URI or flulike symptoms. Denies abdominal pain, nausea, vomiting, diarrhea, constipation. Denies dysuria. Presents to the ER he was found to be afebrile, tachycardic, blood pressure stable, adequate oxygenation on room air. Intake labs with leukocytosis, WBC = 19.6 with elevated neutrophils. Patient remained in sinus tachycardia with heart rate ranging [id number]. She was administered IV fluid with no response therefore admission requested by ER ER course: Levaquin, normal saline x3 L Discharge Data Consultations 05/04/19 15:54 ED Decision to Admit Stat 05/06/19 11:29 Consult Thoracic Surgery Routine 05/06/19 11:36 Consult Thoracic Surgery Routine Hospital Course (1) Tachycardia: Pt is a 29yo with a Hx of Anxiety/Depression, Asthma, Migraines and lymph ocytic colitis who presented to the ED with palpitations and was noted to have a persistent tachycardia. Persistent tachycardia -Pt with HR 120s-130s persistently since admission, associated with orthopnea -EKG with sinus tach, rate of 135, qtc 426. Trops negative. -Echo with EF 60-65%, no noted wall motion abnormalities. 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 -will discontinue doxycycline Asthma -Pt with hx of mild persistent asthma -continue levalbuterol as needed -hold home albuterol Migraine Headaches -continue home rizatriptan 10mg q2h prn and tramadol 50mg daily prn FEN/GI: regular diet, fluids DVT prophylaxis: low risk, ambulation CODE STATUS: Full Dispo: discharge pending thoracic surgery consult and recs
--- NOTE | 2019-05-06 14:28 | Surgery Consultation ---
Date of Consultation May 06, 2019 Assessment & Plan (1) Thymus hyperplasia: -when compared to prior CT scan, little is the way of change was noted -recommend following up with PC in [address] scan of chest -admitting symptoms are not likely related to CT scan findings of thymic hyperplasia History of Present Illness Attending Physician: Rikki Richards DO 29 year old female admitted with SOB and tachycardia. She notes she suffers from IBS and migraines but is otherwise healthy. She denies fevers, shakes, chills. No muscle fatigue or weakness. No diplopia. Since admission she had a chest CT scan that showed hyperplasia of thymus tissue. No PE wa snoted. At the time of my exam she was resting comfortably in bed. Allergies Allergy/AdvReac Type Severity Reaction Status Date / Time clavulanic acid Allergy Severe Anaphylaxis Verified 05/04/19 11:25 [From Augmentin] amoxicillin Allergy Unknown Anaphylaxis Verified 05/04/19 11:25 Home Medications Home Medications Medication Instructions Recorded Confirmed Type albuterol sulfate 90 mcg/actuation 2 puffs INH Q6H PRN 01/06/18 05/04/19 History aerosol inhaler rizatriptan 10 mg tablet 10 mg PO Q2H PRN 01/06/18 05/04/19 History tramadol 50 mg tablet 50 mg PO DAILY PRN tab 01/06/18 05/04/19 History budesonide 3 mg 9 mg PO DAILY #90 ea 03/23/19 05/04/19 Rx capsule,delayed,extended release Patient History Medical History Anxiety disorder (Chronic) Asthma (Chronic) Depressive disorder (Chronic) Headache, chronic migraine without aura (Chronic) Osteoarthritis (Chronic) Surgical History History of breast biopsy (Chronic) History of recent maxillofacial surgery (Chronic) History of tubal ligation (Chronic) 2018 S/P lumpectomy, left breast Family History Denies family history of Ovarian cancer Prostate cancer Myocardial infarction Breast cancer Colorectal cancer Social History Preferred Language: [place] Communication Ability: Effective Visual Impairment: No Limitations Hearing Ability: Normal Taxicab Starter Required: No Beliefs That Will Affect Care: None marital status: Current Living Situation: Spouse current occupational status: employed current occupation: Employed at [employer] x 4 years Other Information That Helps Us Care for You: No Feels Safe at Home: Yes Safety Concerns: Feels Safe At This Time Smoking Status: Never smoker Hx Alcohol Use: Yes (2-3 drinks per week) Alcohol type: wine Hx Substance Use: No Childhood Exposure to Second-Hand Smoke: No Dental Care, Regularly: Yes Physical Activity Frequency: Daily Seatbelt Use: always Sunscreen Use: Yes Do you think of yourself as: straight/heterosexual Review of Systems Constitutional: no fever, no chills, no fatigue, no malaise and no weight loss Eyes: no diplopia Ear, Nose, Mouth, Throat: no ear pain Respiratory: + dyspnea; no cough Cardiovascular: no chest pain Gastrointestinal: no abdominal pain and no nausea Genitourinary: no urinary frequency Musculoskeletal: no back pain Integumentary: no rash Neurologic: no localized weakness and no generalized weakness Physical Exam Constitutional: well developed and well nourished; no acute distress Eyes: no conjunctival abnormality ENMT: Ears: no hearing impairment Neck: trachea midline Respiratory: normal respiratory effort; no respiratory distress and no labored breathing Cardiovascular: Rate/Rhythm: regular rate and regular rhythm Neurologic: moves all extremities Psychiatric: A+Ox3, euthymic affect Results & Data Vital Signs (Past 12 Hours) Vital Signs Temp Pulse Pulse Resp BP Pulse Ox 05/06/19 07:47 91 H 05/06/19 07:20 36.7 C 79 16 114/75 100 05/06/19 04:00 36.6 C 88 20 105/62 96 PG Care Time/CCT Total # of Minutes Spent Total Time Spent with Patient: Total time spent is greater than 50% in c oordination of care (as documented) at patient's floor/unit and/or counseling patient: Coding Level of Care Code 33945 Inpt Consult Level 4 Diagnoses Thymus hyperplasia E32.0
--- NOTE | 2019-05-06 16:25 | Discharge Summary ---
Date of Service May 06, 2019 Admission HPI Per Admitting Provider Chief Complaint: Tachycardia Primary Care Provider: Ran Santos DO Catie Read is a 29-year-old female with history of anxiety/depression, asthma, migraine presenting with shortness of breath and tac hycardia. Patient reports using a humidifier last evening but may have contained moldy water. At 04 100 she woke from sleep acutely short of breath with wheeze. She took her Ventolin MDI at 04:00, 08:00 and again at 11:00 with minimal relief. Patient typically has a tachycardia after albuterol. She denies fever/chills/sweats/cough/sputum/URI or flulike symptoms. Denies abdominal pain, nausea, vomiting, diarrhea, constipation. Denies dysuria. Presents to the ER he was found to be afebrile, tachycardic, blood pressure stable, adequate oxygenation on room air. Intake labs with leukocytosis, WBC = 19.6 with elevated neutrophils. Patient remained in sinus tachycardia with heart rate ranging [id number]. She was administered IV fluid with no response therefore admission requested by ER ER course: Levaquin, normal saline x3 L Admission Exam Per Admitting Provider General: patient resting comfortably, NAD, non-toxic in appearance, AA&O x 4 Skin: warm, dry, intact, no rashes or lesions HEENT: NC/AT, PERRL, EOMI, anicteric sclera, conjunctiva without injection, external ear normal to inspection and nontender, nares patent, moist mucus membranes, dentition intact, no oropharyngeal lesions, neck supple, trachea midline, no LAD, no thyromegaly, no JVD Heart: +S1/S2, regular, tachycardic, no m/r/g Lungs: equal air entry bilaterally, no rales/rhonchi/wheezes Abd: +BS, soft, NT/ND, no masses/organomegaly/ascites Ext: warm, 2+ pulses in UE/LE bilaterally, no clubbing/cyanosis or edema Neuro: nonfocal, patient AA&O x 4, speech intact, no facial droop, moving all extremities on command with equal strength 5/5 Principal Diagnosis Dyspnea Discharge Exam General: In NAD Neuro: A&O x 4 CV: RRR, no m/r/g, cap refill 2 secs Pulm: CTAB, equal breath sounds bilaterally, no increased work of breathing Abdomen: +BS, no TTP in all quadrants, non-distended LE: No LE edema, no calf tenderness Discharge Data Allergies Allergy/AdvReac Type Severity Reaction Status Date / Time clavulanic acid Allergy Severe Anaphylaxis Verified 05/04/19 11:25 [From Augmentin] amoxicillin Allergy Unknown Anaphylaxis Verified 05/04/19 11:25 Consultations 05/04/19 15:54 ED Decision to Admit Stat 05/06/19 11:29 Consult Thoracic Surgery Routine 05/06/19 11:36 Consult Thoracic Surgery Routine Ordered Studies 05/05/19 08:17 CT angio chest PE protocol Urgent Hospital Course (1) Tachycardia: 29yo with Hx of Anxiety/Depression, Asthma, Migraines and lymphocytic colitis presented with palpitations and dyspnea. Dyspnea and tachycardia: likely asthma exacerbation -Pt's HR was 120s-130s initially but normalized over the course of hospitalization, associated with orthopnea/dyspnea - remained on RA with normal exam findings -EKG with sinus tach, rate of 135, qtc 426. Trops negative. -Echo with EF 60-65%, no noted wall motion abnormalities. -TSH normal, Lyme Negative -D-dimer normal, CTA with NO PE, but noted a "a bilobed 22 mm nodular focus within the anterior superior mediastinum" with increasing nodularity which possibly represents an epithelial thymic neoplasm vs thymic hyperplasia -Thoracic surgery consulted: Thymus hyperplasia: changed very little compared to prior CT in 2017, uynlikely to be causing symptoms -recommend following up with PC in [address] scan of chest -Discharged on home asthma medications: albuterol as needed and budesonide -Follow up with pulmonoly in [address] scan of chest for thymus hyperplasia -Follow up with PCP in 3-4 days Leukocytosis likely viral vs. inflammatory in nature secondary to possible asthma exacerbation -WBC elevated >21196 on admission, downtrending to 11.7, pt afebrile -flu negative, Lyme negative, chest XR unremarkable, urine with only trace blood, blood Cx x2 NGTD -received doxycycline initially which was dced Asthma -Pt with hx of mild persistent asthma -continue home albuterol and budesonide Migraine Headaches -continue home rizatriptan 10mg q2h prn and tramadol 50mg daily prn Total Time Total Time Spent Total Time Spent (In Minutes): <30 Discharge Plan Discharge Items Patient Disposition: Home - Self-Care Reason For Visit: TACHYCARDIA Discharge Diagnosis: Dyspnea Activity: Resume your previous activity Non-emergency contact: Primary Care Provider Call non-emergency contact if: you have any medication questions, your symptoms worsen and you have a fever Follow-up/Referrals: Ran Santos DO [Primary Care Provider] - 05/16/19 9:20 am Diet: Regular Addtl Attending Provider Instructions: Ms. Read you were admitted for concern of shortness of breath and fast heart beat. Your work up was reassuring. You had a similar episode 3 years ago during which you were found to have enlargement of your thymus. On your chest imaging the thumus enlargement was noted again. We consulted Dr. Hutchins who was not concerned that your thymus enlargement was causing your symptoms. It is possible that you had a viral illness which lead to worsening of your breathing in the setting of having asthma. Continue using your home albuterol as needed and taking your budesonide Continue your remaining home medications as prescribed Please follow up with your primary care doctor next week Pending Studies at Discharge: No Stand-Alone Forms: My [facility], Smoking Cessation Medications and DC Order Prescriptions: Continued rizatriptan [Maxalt] 10 mg tablet 10 mg PO Q2H PRN (Reason: migraines) RF: 0 tramadol 50 mg tablet 50 mg PO DAILY PRN (Reason: Pain) RF: 0 albuterol sulfate [Ventolin HFA] 90 mcg/actuation HFA aerosol inhaler 2 puffs INH Q6H PRN (Reason: Shortness Of Breath) RF: 0 budesonide 3 mg capsule,delayed,extend.release 9 mg PO DAILY Qty: 90 RF: 1 Discharge Orders: Discharge Order (Routine); Ordered 05/06/19 Ordered By: Promise Casas Admission Data Admit Date/Time: 05/04/19 17:06 Attending Provider: Rikki Richards Admit Provider: Qi Newton Primary Care Provider: Ran Santos Other Providers: Qi Newton ; Donald Hutchins Other Interventions: Discharge Summary Assessment (RN) Last Done: 05/06/19 16:38 DC Date/Time DO NOT enter until pt leaves facility: 05/06/19 17:00 Supervising Physician Co-Signing Physician Notes I personally examined the patient and verified all anderson points of history and exam, discussed case, and agree with decision making with Dr Casas. Feeling better. Would like to go home. Case discussed with thoracic surgery, input appreciated. Vitals noted, in general she is awake and alert pleasant no distress. HEENT normocephalic atraumatic mucous membranes moist. Breathing unlabored no accessory muscle use good effort. Skin shows no rashes no pallor or icterus. Tachycardiaseems to been due to dyspnea and albuterolonce her heart rate slowed down they have remained relatively reasonable given the situation. No true arrhythmia noted. Dyspneawhile we did have concern about whether or not her thymic tissue could have been causing some airway compression, after input from thoracic surgery this is probably an incidental finding that simply needs to be followed to ensure it does not grow further. Given that, it is most likely that her shortness of breath was a mild asthmatic response to 1 of the multitude of viral illnesses present in the community. I discussed with the patient that this of course leaves no clear footprint, but that close follow-up and trending of her symptoms with her PCP would be a reasonable way to get to the bottom of things. Meaning that if her shortness of breath fades and is totally gone and does not come back, it would absolutely fit with a viral illness, and if things continue or worsen, then the diagnosis will likely present itself. In this respect we would like to get her in with her PCP next week, and then periodic follow-up thereafter depending on how she is doing. Stable for discharge. Resident Activity Tracking Resident Involvement: Resident Care Provided Care Provided: Adult Hospital Medicine
--- NOTE | 2019-05-06 18:50 | Billing Data ---
Date of Service May 06, 2019 Coding Level of Care Code D/C Day Management <30 mins
== END 2019-05-06 17:00 | disposition home or self-care (01) | DRG 203 ==
LOC: ED 12:44 → 2W 17:06 → SUATTDRO 17:06 → 2W 18:06